=== PATIENT | male | born 1960 | race Caucasian/White ===

== ENCOUNTER 2017-07-18 20:53 | Inpatient (IN) | payer BC ==
[2017-07-18] MEDS ORDERED: NS 0.9% 1000 ML*IV.FLUID IV ONE (21:08)
[2017-07-18] MEDS ORDERED: Acetaminophen TAB* 325 MG PO ONE (21:10)
--- NOTE | 2017-07-18 21:21 | ED ---
Progress - Progress Note Progress Note: Pt with hx endocarditis x 3. Hx Hypertrophic cardiomyopathy, s/p septal myomectomy in 07/2010, s/p radiofrequency ablations at the [facility]. Pt had IV Vanco 1gm on Jun 03 per his civil engineering designer prior to a dental procedure. Pt presents tonight after calling Dr. Rahul Ortiz, forest and conservation worker for Dr. Sullivan (pt's civil engineering designer) because he had fever 102 at home with chills and rigors. Pt took ibuprofen 600mg po at 8:00pm. Pt denies chest pain or shortness of breath. Will initiate blood work with sepsis order set and fluids, draw blood cultures. Will give acetaminophen 650mg po. Will hold ordering antibiotics until possible source is identified. Valente Douglas MD 21:20 Course/Dx - Diagnoses Provider Diagnoses: Fever
[2017-07-18 21:32] LABS: Hematocrit 48 % (42-52); Hemoglobin 16.7 g/dl (14.0-18.0); Mean Corpuscular HGB Conc 35 g/dl (31-36); Mean Corpuscular Hemoglobin 31 pg (27-31); Mean Corpuscular Volume 89 fL (80-94); Mean Platelet Volume 7 um3 (7.4-10.4); Red Blood Count 5.33 10^6/ul (4.0-5.4); Red Cell Distribution Width 14 % (10.5-15); White Blood Count 11.9 10^3/ul (3.5-10.8)
[2017-07-18 21:49] LABS: Albumin 4.5 g/dL (3.2-5.2); BUN/Creatinine Ratio 27.9 (8-20); C Reactive Protein 2.66 mg/L (< 5.00); Calcium 9.5 mg/dL (8.6-10.3); EGFR African American 95.4 (>60); EGFR Non-African American 74.1 (>60); Globulin 2.7 g/dL (2-4); Potassium 4.1 mmol/L (3.5-5.0); Total Protein 7.2 g/dL (6.4-8.9)
[2017-07-18 21:55] LABS: Troponin I 0.04 ng/mL (<0.04)
--- NOTE | 2017-07-18 22:03 | RAD ---
HISTORY: Fever, history of endocarditis COMPARISONS: November 04, 2015 VIEWS: 2: frontal portable view of the chest at 9:55 PM FINDINGS: LINES AND TUBES: None. CARDIOMEDIASTINAL SILHOUETTE: The cardiomediastinal silhouette is normal for portable technique. PLEURA: The costophrenic angles are sharp. No pleural abnormalities are noted. LUNG PARENCHYMA: The lungs are clear. ABDOMEN: The upper abdomen is clear. There is no subphrenic gas. BONES AND SOFT TISSUES: The patient is status post median sternotomy. IMPRESSION: NO ACTIVE CARDIOPULMONARY DISEASE.
[2017-07-18] MEDS ORDERED: Vancomycin(*) 1,500 MG in NS 0.9% 250 ML* 250 ML IVPB ONE (22:07)
[2017-07-18 22:32] LABS: Erythrocyte Sed Rate 0 mm/Hr (0-20)
[2017-07-18] MEDS ORDERED: Cefepime 1 GM in Dextrose(*) 1 GM/50 ML BAG IV ONE (23:00)
--- NOTE | 2017-07-18 23:03 | ED ---
Huang Solis Tiffany, scribed for [employer] on 07/18/17 at 2132 . Complex/Multi-Sys Presentation - HPI Summary HPI Summary: This patient is a 56 year old M presenting to [facility] with a chief complaint of fever since two hours ago. Symptoms aggravated by nothing. Symptoms alleviated by nothing. Patient reports chills and nausea. Patient denies shortness of breath, chest pain, abdominal pain, and sore throat. Per ED progress note 07/18/17 at 21:20, pt with hx endocarditis x 3. Hx Hypertrophic cardiomyopathy, s/p septal myomectomy in 07/2010, s/p radiofrequency ablations at the [facility]. Pt had IV Vanco 1gm on Nov per his tool grinder operator prior to a dental procedure. Pt presents tonight after calling Dr. Rahul Ortiz, special forces communications sergeant for Dr. Sullivan (pt's tool grinder operator) because he had fever 102 at home with chills and rigors. Pt took ibuprofen 600mg po at 8: 00pm. - History Of Current Complaint Chief Complaint: EDFever Time Seen by Provider: 07/18/17 21:15 Hx Obtained From: Patient Onset/Duration: Lasting Hours - 2 hours, Still Present Aggravating Factor(s): Nothing Alleviating Factor(s): Nothing Associated Signs And Symptoms: Positive: Other - chills and nausea; NEGATIVE: shortness of breath, chest pain, abdominal pain, and sore throat. - Allergies/Home Medications Allergies/Adverse Reactions: Allergies Allergy/AdvReac Type Severity Reaction Status Date / Time Penicillins [PCN] Allergy Unknown Hives Verified 06/03/17 09:58 PMH/Surg Hx/FS Hx/Imm Hx Previously Healthy: No Cardiovascular History: Reports: Other Cardiovascular Problems/Disorders - ENDOCARDITIS, HYPERTROPHIC CARDIOMYOPATHY Denies: Hx Pacemaker/ICD Respiratory History: Reports: Other Respiratory Problems/Disorders - SLEEP APNEA Psychiatric History: Denies: Hx Panic Disorder - Surgical History Surgery Procedure, Year, and Place: 2007 GALLBLADDER, MYOMECTOMY WITH A BIOPROTHETIC MITRAL VALVE REPLACEMENT BICOR, - Immunization History Immunizations Up to Date: Yes Infectious Disease History: Yes Infectious Disease History: Denies: Traveled Outside the [place] in Last 30 Days - Family History Known Family History: Positive: None Family History: R & n/C - Social History Alcohol Use: Occasionally Hx Substance Use: No Substance Use Type: Reports: None Hx Tobacco Use: No Smoking Status (MU): Never Smoked Tobacco Review of Systems Positive: Fever, Chills Negative: Sore Throat Negative: Chest Pain Negative: Shortness Of Breath Positive: Nausea. Negative: Abdominal Pain All Other Systems Reviewed And Are Negative: Yes Physical Exam - Summary Physical Exam Summary: Appearance: Well appearing, no pain distress Skin: warm, dry, reflects adequate perfusion Head/face: normal Eyes: EOMI, DONNA ENT: normal Neck: supple, non-tender Respiratory: CTA, breath sounds present Cardiovascular: RRR, pulses symmetrical Abdomen: non-tender, soft Bowel: present Musculoskeletal: normal, strength/ROM intact Neuro: normal, sensory motor intact, A&Ox3 Triage Information Reviewed: Yes Vital Signs On Initial Exam: Initial Vitals Temp Pulse Resp BP Pulse Ox 100.1 F 75 14 146/70 97 07/18/17 20:54 07/18/17 20:54 07/18/17 20:54 07/18/17 20:54 07/18/17 20:54 Vital Signs Reviewed: Yes - Mitch Coma Scale Coma Scale Total: 15 Diagnostics - Vital Signs Vital Signs Temp Pulse Resp BP Pulse Ox 07/18/17 20:54 100.1 F 75 14 146/70 97 - Laboratory Lab Results: Lab Results 07/18/17 07/18/17 07/18/17 Range/Units 21:13 21:13 21:13 WBC (3.5-10.8) 10^3/ul RBC (4.0-5.4) 10^6/ul Hgb (14.0-18.0) g/dl Hct (42-52) % MCV (80-94) fL MCH (27-31) pg MCHC (31-36) g/dl RDW (10.5-15) % Plt Count (150-450) 10^3/ul MPV (7.4-10.4) um3 Neut % (Auto) (38-83) % Lymph % (Auto) (25-47) % [place] % (Auto) (1-9) % Eos % (Auto) (0-6) % Baso % (Auto) (0-2) % Absolute Neuts (auto) (1.5-7.7) 10^3/ul Absolute Lymphs (auto) (1.0-4.8) 10^3/ul Absolute Monos (auto) (0-0.8) 10^3/ul Absolute Eos (auto) (0-0.6) 10^3/ul Absolute Basos (auto) (0-0.2) 10^3/ul Absolute Nucleated RBC 10^3/ul Nucleated RBC % ESR (0-20) mm/Hr INR (Anticoag Therapy) 1.84 H (0.77-1.02) APTT 37.7 H (26.0-36.3) seconds Fibrinogen 212 (110.8-404.3) mg/dL Sodium 135 (133-145) mmol/L Potassium 4.1 (3.5-5.0) mmol/L Chloride 105 (101-111) mmol/L Carbon Dioxide 22 (22-32) mmol/L Anion Gap 8 (2-11) mmol/L BUN 29 H (6-24) mg/dL Creatinine 1.04 (0.67-1.17) mg/dL Est GFR ( Amer) 95.4 (>60) Est GFR (Non-Af Amer) 74.1 (>60) BUN/Creatinine Ratio 27.9 H (8-20) Glucose 106 H (70-100) mg/dL Lactic Acid (0.5-2.0) mmol/L Calcium 9.5 (8.6-10.3) mg/dL Total Bilirubin 1.00 (0.2-1.0) mg/dL AST 14 (13-39) U/L ALT 32 (7-52) U/L Alkaline Phosphatase 59 (34-104) U/L Total Creatine Kinase 122 (10-223) U/L Troponin I 0.04 H* (<0.04) ng/mL C-Reactive Protein 2.66 (< 5.00) mg/L B-Natriuretic Peptide 118 H ( - 100) pg/mL Total Protein 7.2 (6.4-8.9) g/dL Albumin 4.5 (3.2-5.2) g/dL Globulin 2.7 (2-4) g/dL Albumin/Globulin Ratio 1.7 (1-3) Influenza A (Rapid) (Negative) Influenza B (Rapid) (Negative) 07/18/17 07/18/17 07/18/17 Range/Units 21:13 21:13 21:53 WBC 11.9 H (3.5-10.8) 10^3/ul RBC 5.33 (4.0-5.4) 10^6/ul Hgb 16.7 (14.0-18.0) g/dl Hct 48 (42-52) % MCV 89 (80-94) fL MCH 31 (27-31) pg MCHC 35 (31-36) g/dl RDW 14 (10.5-15) % Plt Count 160 (150-450) 10^3/ul MPV 7 L (7.4-10.4) um3 Neut % (Auto) 87.6 H (38-83) % Lymph % (Auto) 5.1 L (25-47) % [place] % (Auto) 5.9 (1-9) % Eos % (Auto) 1.1 (0-6) % Baso % (Auto) 0.3 (0-2) % Absolute Neuts (auto) 10.5 H (1.5-7.7) 10^3/ul Absolute Lymphs (auto) 0.6 L (1.0-4.8) 10^3/ul Absolute Monos (auto) 0.7 (0-0.8) 10^3/ul Absolute Eos (auto) 0.1 (0-0.6) 10^3/ul Absolute Basos (auto) 0 (0-0.2) 10^3/ul Absolute Nucleated RBC 0 10^3/ul Nucleated RBC % 0 ESR 0 (0-20) mm/Hr INR (Anticoag Therapy) (0.77-1.02) APTT (26.0-36.3) seconds Fibrinogen (110.8-404.3) mg/dL Sodium (133-145) mmol/L Potassium (3.5-5.0) mmol/L Chloride (101-111) mmol/L Carbon Dioxide (22-32) mmol/L Anion Gap (2-11) mmol/L BUN (6-24) mg/dL Creatinine (0.67-1.17) mg/dL Est GFR ( Amer) (>60) Est GFR (Non-Af Amer) (>60) BUN/Creatinine Ratio (8-20) Glucose (70-100) mg/dL Lactic Acid 1.9 (0.5-2.0) mmol/L Calcium (8.6-10.3) mg/dL Total Bilirubin (0.2-1.0) mg/dL AST (13-39) U/L ALT (7-52) U/L Alkaline Phosphatase (34-104) U/L Total Creatine Kinase (10-223) U/L Troponin I (<0.04) ng/mL C-Reactive Protein (< 5.00) mg/L B-Natriuretic Peptide ( - 100) pg/mL Total Protein (6.4-8.9) g/dL Albumin (3.2-5.2) g/dL Globulin (2-4) g/dL Albumin/Globulin Ratio (1-3) Influenza A (Rapid) Negative (Negative) Influenza B (Rapid) Negative (Negative) Result Diagrams: 07/18/17 21:13 07/18/17 21:13 Lab Statement: Any lab studies that have been ordered have been reviewed, and results considered in the medical decision making process. - Radiology CXR Radiology Interpretation Completed By: Radiologist - NO ACTIVE CARDIOPULMONARY DISEASE. ED physician has reviewed this radiology report. - EKG 21:26 Cardiac Rate: NL EKG Rhythm: Sinus Rhythm - 70 BPM EKG Interpretation: Left bundle branch block Complex Multi-Symp Course/Dx - Diagnoses Differential Diagnoses/HQI/PQRI: Aspiration, Sepsis, Urinary Tract Infection, Other - endocarditis Provider Diagnoses: Fever, Sepsis, Endocarditis - Physician Notifications Discussed Care Of Patient With: Gibran Quiroga Time Discussed With Above Provider: 22:03 Instructed by Provider To: Other - Dr. Quiroga (hospitalist) agreed to admit the patient. - Critical Care Time Critical Care Time: 30-74 min Discharge - Discharge Plan Condition: Fair Disposition: ADMITTED TO [facility] Patient Education Materials: Fever in Adults (ED) Referrals: Kodi Carlton MD [Primary Care Provider] - The documentation as recorded by the Huang olea Tiffany accurately reflects the service I personally performed and the decisions made by Saul kim Emmanuel.
[2017-07-18] MEDS ORDERED: CMCS: Melatonin (NF) 3 MG TAB PO PRN (23:41)
[2017-07-18] MEDS ORDERED: Ondansetron INJ* 2 MG/ML VIAL IV PRN (23:42)
[2017-07-18] MEDS ORDERED: Vancomycin per Pharmacy* NOTE FOLLOW UP SCH (23:45)
[2017-07-19] MEDS ORDERED: Vancomycin per Pharmacy* NOTE FOLLOW UP PRN
[2017-07-19 01:56] LABS: Urine Bacteria Absent (Absent); Urine Bilirubin Negative (Negative); Urine Glucose Negative (Negative); Urine Nitrite Negative (Negative)
[2017-07-19] MEDS: NS 0.9% 1000 ML* 1,000 ML IV SCH (03:27)
[2017-07-19] MEDS: Acetaminophen TAB* 325 MG PO PRN ×2 (03:47→09:22)
[2017-07-19] MEDS: Omeprazole CAP* 20 MG PO SCH (05:48)
--- NOTE | 2017-07-19 05:49 | HP ---
H&P (Free Text) History and Physical: PCP: Segun Carlton MD Cardiology: Rip Sullivan MD Date/Time: 07/18/2017 2330 CC: fever HPI: Mr Rhodes is a 56YO male HX endocarditis x3, porcine MVR, myomectomy for hypertrophic cardiomyopathy, & paroxysmal AFIB presents reporting being in his usual status of health until 1900 tonight when he developed sudden onset malaise , F/C, rigors, nausea, & myalgias. He denies exacerbating and alleviating factors. There has been no chest pain, cough, congestion, earache, sore throat, abdominal pain, change in bowel/bladder, or rash. He states this feels like his previous episodes of endocarditis. He called cardiology conche loader and unloader who advised him to present for evaluation. PMedHx pAFIB HLD, mixed endocarditis x3 porcine MVR hypertrophic cardiomyopathy s/p myomectomy depression Ambulatory Orders Aspirin [Aspirin EC] 81 mg PO DAILY 07/01/12 Bupropion HCl [Bupropion HCl Sr] 200 mg PO BID 07/01/12 Fenofibrate 1 tab PO DAILY 07/01/12 Multiple Vitamin [Multivitamins] 1 tab PO DAILY 07/01/12 Atorvastatin Calcium 80 mg PO QPM 09/25/13 Coenzyme Q10 (Ubidecarenone) [Co Q-10] 200 mg PO DAILY 09/25/13 Rivaroxaban [Xarelto] 20 mg PO QPM 09/26/13 [id number] Ethyl Esters [Lovaza 1 gm] 2 cap PO BID 10/30/13 Metoprolol Succinate [Metoprolol Succinate ER] 25 mg PO BID 07/18/17 Allergies Penicillins [PCN] Allergy (Unknown, Verified 06/03/17 09:58) Hives PSurgHx porcine MVR myomectomy radio frequency ablations x2 cholecystectomy SocHx: no tobacco, 1-2 alcoholic drinks weekly, no recreational drugs; lives with his ; commercial appraiser; full code status FamHx: negative for early onset CAD/CVA and hypertrophic cardiomyopathy ROS: as above, otherwise reviewed and all were negative vitals: Vital Signs Temp 36.5 C 07/19/17 02:48 Pulse 91 07/19/17 02:48 Resp 23 07/19/17 02:48 BP 141/55 07/19/17 02:48 Pulse Ox 96 07/19/17 02:48 Intake & Output 07/18/17 07/18/17 07/19/17 11:59 23:59 11:59 Intake Total 2166 1173 Output Total 650 Balance 2166 523 Weight 105.233 kg 105.233 kg Intake: IV Fluids 2166 1173 NS (0.9%) 1173 Oral 0 Output: Urine 650 Other: Estimated Void Medium # Voids 1 Constitutional: NAD, normally developed, obese white male HEENM: atraumatic; sclera/conjunctiva: anicteric/clear; hearing: clinically intact; oropharynx: clear, mucosa moist Neck: soft tissue: no nuchal rigidity; thyroid: normal Pulmonary: clear to auscultation bilaterally, good aeration, no accessory muscle use CV: RR/RR, normal S1S2, no carotid bruit, no jugular venous distention, 2+ B DP/ PT, no edema Abdominal: soft, non-distended, non-tender, no rebound/guarding/rigidity, normoactive bowel sounds, no hepatosplenomegaly or masses, no costovertebral angle tenderness Musculoskeletal: general: grossly intact, no palpable tenderness Integumental: B medial thighs w/ excoriated erythematous dry plaques w/o warmth/ tenderness/induration; otherwise normal appearance and texture of exposed skin Psychiatric orientation: AA&O to PPS affect: calm mood: cooperative eye contact: good content: reliable responses: timely insight: good Testing: Lab Results 07/18/17 07/18/17 07/18/17 Range/Units 21:13 21:13 21:13 WBC (3.5-10.8) 10^3/ul RBC (4.0-5.4) 10^6/ul Hgb (14.0-18.0) g/dl Hct (42-52) % MCV (80-94) fL MCH (27-31) pg MCHC (31-36) g/dl RDW (10.5-15) % Plt Count (150-450) 10^3/ul MPV (7.4-10.4) um3 Neut % (Auto) (38-83) % Lymph % (Auto) (25-47) % [place] % (Auto) (1-9) % Eos % (Auto) (0-6) % Baso % (Auto) (0-2) % Absolute Neuts (auto) (1.5-7.7) 10^3/ul Absolute Lymphs (auto) (1.0-4.8) 10^3/ul Absolute Monos (auto) (0-0.8) 10^3/ul Absolute Eos (auto) (0-0.6) 10^3/ul Absolute Basos (auto) (0-0.2) 10^3/ul Absolute Nucleated RBC 10^3/ul Nucleated RBC % ESR (0-20) mm/Hr INR (Anticoag Therapy) 1.84 H (0.77-1.02) APTT 37.7 H (26.0-36.3) seconds Fibrinogen 212 (110.8-404.3) mg/dL Sodium 135 (133-145) mmol/L Potassium 4.1 (3.5-5.0) mmol/L Chloride 105 (101-111) mmol/L Carbon Dioxide 22 (22-32) mmol/L Anion Gap 8 (2-11) mmol/L BUN 29 H (6-24) mg/dL Creatinine 1.04 (0.67-1.17) mg/dL Est GFR ( Amer) 95.4 (>60) Est GFR (Non-Af Amer) 74.1 (>60) BUN/Creatinine Ratio 27.9 H (8-20) Glucose 106 H (70-100) mg/dL Lactic Acid (0.5-2.0) mmol/L Calcium 9.5 (8.6-10.3) mg/dL Total Bilirubin 1.00 (0.2-1.0) mg/dL AST 14 (13-39) U/L ALT 32 (7-52) U/L Alkaline Phosphatase 59 (34-104) U/L Total Creatine Kinase 122 (10-223) U/L Troponin I 0.04 H* (<0.04) ng/mL C-Reactive Protein 2.66 (< 5.00) mg/L B-Natriuretic Peptide 118 H ( - 100) pg/mL Total Protein 7.2 (6.4-8.9) g/dL Albumin 4.5 (3.2-5.2) g/dL Globulin 2.7 (2-4) g/dL Albumin/Globulin Ratio 1.7 (1-3) Urine Color Urine Appearance Urine pH (5-9) Ur Specific [place] (1.010-1.030) Urine Protein (Negative) Urine Ketones (Negative) Urine Blood (Negative) Urine Nitrate (Negative) Urine Bilirubin (Negative) Urine Urobilinogen (Negative) Ur Leukocyte Esterase (Negative) Urine WBC (Auto) (Absent) Urine RBC (Auto) (Absent) Urine Bacteria (Absent) Urine Glucose (Negative) Influenza A (Rapid) (Negative) Influenza B (Rapid) (Negative) 07/18/17 07/18/17 07/18/17 Range/Units 21:13 21:13 21:53 WBC 11.9 H (3.5-10.8) 10^3/ul RBC 5.33 (4.0-5.4) 10^6/ul Hgb 16.7 (14.0-18.0) g/dl Hct 48 (42-52) % MCV 89 (80-94) fL MCH 31 (27-31) pg MCHC 35 (31-36) g/dl RDW 14 (10.5-15) % Plt Count 160 (150-450) 10^3/ul MPV 7 L (7.4-10.4) um3 Neut % (Auto) 87.6 H (38-83) % Lymph % (Auto) 5.1 L (25-47) % [place] % (Auto) 5.9 (1-9) % Eos % (Auto) 1.1 (0-6) % Baso % (Auto) 0.3 (0-2) % Absolute Neuts (auto) 10.5 H (1.5-7.7) 10^3/ul Absolute Lymphs (auto) 0.6 L (1.0-4.8) 10^3/ul Absolute Monos (auto) 0.7 (0-0.8) 10^3/ul Absolute Eos (auto) 0.1 (0-0.6) 10^3/ul Absolute Basos (auto) 0 (0-0.2) 10^3/ul Absolute Nucleated RBC 0 10^3/ul Nucleated RBC % 0 ESR 0 (0-20) mm/Hr INR (Anticoag Therapy) (0.77-1.02) APTT (26.0-36.3) seconds Fibrinogen (110.8-404.3) mg/dL Sodium (133-145) mmol/L Potassium (3.5-5.0) mmol/L Chloride (101-111) mmol/L Carbon Dioxide (22-32) mmol/L Anion Gap (2-11) mmol/L BUN (6-24) mg/dL Creatinine (0.67-1.17) mg/dL Est GFR ( Amer) (>60) Est GFR (Non-Af Amer) (>60) BUN/Creatinine Ratio (8-20) Glucose (70-100) mg/dL Lactic Acid 1.9 (0.5-2.0) mmol/L Calcium (8.6-10.3) mg/dL Total Bilirubin (0.2-1.0) mg/dL AST (13-39) U/L ALT (7-52) U/L Alkaline Phosphatase (34-104) U/L Total Creatine Kinase (10-223) U/L Troponin I (<0.04) ng/mL C-Reactive Protein (< 5.00) mg/L B-Natriuretic Peptide ( - 100) pg/mL Total Protein (6.4-8.9) g/dL Albumin (3.2-5.2) g/dL Globulin (2-4) g/dL Albumin/Globulin Ratio (1-3) Urine Color Urine Appearance Urine pH (5-9) Ur Specific [place] (1.010-1.030) Urine Protein (Negative) Urine Ketones (Negative) Urine Blood (Negative) Urine Nitrate (Negative) Urine Bilirubin (Negative) Urine Urobilinogen (Negative) Ur Leukocyte Esterase (Negative) Urine WBC (Auto) (Absent) Urine RBC (Auto) (Absent) Urine Bacteria (Absent) Urine Glucose (Negative) Influenza A (Rapid) Negative (Negative) Influenza B (Rapid) Negative (Negative) 07/19/17 07/19/17 07/19/17 Range/Units 01:24 01:24 01:30 WBC (3.5-10.8) 10^3/ul RBC (4.0-5.4) 10^6/ul Hgb (14.0-18.0) g/dl Hct (42-52) % MCV (80-94) fL MCH (27-31) pg MCHC (31-36) g/dl RDW (10.5-15) % Plt Count (150-450) 10^3/ul MPV (7.4-10.4) um3 Neut % (Auto) (38-83) % Lymph % (Auto) (25-47) % [place] % (Auto) (1-9) % Eos % (Auto) (0-6) % Baso % (Auto) (0-2) % Absolute Neuts (auto) (1.5-7.7) 10^3/ul Absolute Lymphs (auto) (1.0-4.8) 10^3/ul Absolute Monos (auto) (0-0.8) 10^3/ul Absolute Eos (auto) (0-0.6) 10^3/ul Absolute Basos (auto) (0-0.2) 10^3/ul Absolute Nucleated RBC 10^3/ul Nucleated RBC % ESR (0-20) mm/Hr INR (Anticoag Therapy) (0.77-1.02) APTT (26.0-36.3) seconds Fibrinogen (110.8-404.3) mg/dL Sodium (133-145) mmol/L Potassium (3.5-5.0) mmol/L Chloride (101-111) mmol/L Carbon Dioxide (22-32) mmol/L Anion Gap (2-11) mmol/L BUN (6-24) mg/dL Creatinine (0.67-1.17) mg/dL Est GFR ( Amer) (>60) Est GFR (Non-Af Amer) (>60) BUN/Creatinine Ratio (8-20) Glucose (70-100) mg/dL Lactic Acid 1.5 (0.5-2.0) mmol/L Calcium (8.6-10.3) mg/dL Total Bilirubin (0.2-1.0) mg/dL AST (13-39) U/L ALT (7-52) U/L Alkaline Phosphatase (34-104) U/L Total Creatine Kinase (10-223) U/L Troponin I 0.04 H* (<0.04) ng/mL C-Reactive Protein (< 5.00) mg/L B-Natriuretic Peptide ( - 100) pg/mL Total Protein (6.4-8.9) g/dL Albumin (3.2-5.2) g/dL Globulin (2-4) g/dL Albumin/Globulin Ratio (1-3) Urine Color Yellow Urine Appearance Cloudy Urine pH 5.0 (5-9) Ur Specific [place] 1.028 (1.010-1.030) Urine Protein Negative (Negative) Urine Ketones Negative (Negative) Urine Blood 1+ H (Negative) Urine Nitrate Negative (Negative) Urine Bilirubin Negative (Negative) Urine Urobilinogen Negative (Negative) Ur Leukocyte Esterase Negative (Negative) Urine WBC (Auto) Trace(0-5/hpf) (Absent) Urine RBC (Auto) 2+(6-10/hpf) H (Absent) Urine Bacteria Absent (Absent) Urine Glucose Negative (Negative) Influenza A (Rapid) (Negative) Influenza B (Rapid) (Negative) ECG, personally reviewed: 1st degree AV LBBB rate 70 CXR, personally reviewed: IMPRESSION: NO ACTIVE CARDIOPULMONARY DISEASE. Impression: 56M HX endocarditis x3, porcine MVR, myomectomy for hypertrophic cardiomyopathy, & paroxysmal AFIB presents with sudden onset malaise, F/C, rigors, nausea, & myalgias of uncertain etiology DIAGNOSIS & PLAN Primary presumed infectious burden of uncertain source HX endocarditis x3, porcine MVR, & hypertrophic cardiomyopathy s/p myomectomy : blood CX : IV vancomycin & cefepime empirically for endocarditis : ECHO in AM : supportive care Secondary pAFIB : continue metoprolol & rivaroxaban HLD, mixed : continue atorvastatin & fenofibrate depression : continue bupropion Admission Rational: inpatient for IV ABX for presumed endocarditis, awaiting blood CX, do not anticipate discharge w/i 48h DVTp: continue rivaroxaban Code Status: full HCP:
[2017-07-19 07:09] LABS: Hematocrit 42 % (42-52); Hemoglobin 14.9 g/dl (14.0-18.0); Mean Corpuscular HGB Conc 36 g/dl (31-36); Mean Corpuscular Hemoglobin 32 pg (27-31); Mean Corpuscular Volume 89 fL (80-94); Mean Platelet Volume 7 um3 (7.4-10.4); Red Blood Count 4.73 10^6/ul (4.0-5.4); Red Cell Distribution Width 14 % (10.5-15); White Blood Count 12.7 10^3/ul (3.5-10.8)
[2017-07-19 07:20] LABS: BUN/Creatinine Ratio 22.2 (8-20); Calcium 8.5 mg/dL (8.6-10.3); EGFR African American 91.3 (>60); Potassium 3.8 mmol/L (3.5-5.0)
[2017-07-19 07:27] LABS: Troponin I 0.05 ng/mL (<0.04)
[2017-07-19] MEDS ORDERED: Acetaminophen TAB* 325 MG PO ONE (09:13)
[2017-07-19] MEDS: Vancomycin(*) 1,250 MG in NS 0.9% 250 ML* 250 ML IVPB SCH ×2 (09:24→17:31)
[2017-07-19] MEDS: Metoprolol Succinate XL TAB* 25 MG PO SCH ×2 (09:27→23:37)
[2017-07-19] MEDS: Docusate CAP* 100 MG PO SCH ×2 (09:27→23:37)
[2017-07-19] MEDS: buPROPion SR TAB.SR* 200 MG PO SCH ×2 (09:27→23:37)
[2017-07-19] MEDS: Aspirin EC Low Dose* 81 MG TAB.EC PO SCH (09:27)
[2017-07-19] MEDS: Triamcinolone 0.5% OINT * 15 GM TUBE TOPICAL SCH ×3 (09:36→23:38)
[2017-07-19] MEDS: FENOFIBRATE PO SCH (09:36)
--- NOTE | 2017-07-19 10:06 | ECHO ---
Patient: SONIA RODRÍGUEZ [facility] Rec#: [id number] : 1960 Date: 07/19/2017 Age: 56y Height: 188 cm / 74.0 in Weight: 105.2 kg / 231.9 lbs Sex: M BSA: 2.31 Room#: [facility] Admit Date#: 07/18/2017 Type: Inpatient Referring: Gibran Quiroga MD Reading: Fernie Ascencio MD Cementer Machine Joiner: Candie Maya RN RDCS CC: Kodi Carlton MD Transthoracic Echocardiogram Indication: Fever, porcine MVR, previous endocarditis BP: 141/55 HR: 71 Rhythm: NSR Findings History: Endocarditis x 3, porcine MVR, S/P myectomy for hypertrophic cardiomyopathy, paroxysmal A. fib, HLD Technical Comments: The study quality is fair. The study is technically limited due to patient body habitus. Completed at 0940. Left Ventricle: The left ventricular chamber size is normal. Severe concentric left ventricular hypertrophy is observed. There is evidence of a hypertrophic cardiomyopathy. Global left ventricular wall motion and contractility are within normal limits. There is normal left ventricular systolic function. The estimated ejection fraction is 60-65%. Ventricular septal wall motion has a post-operative appearance. There is a left ventricular septal wall motion abnormality observed, possibly due to the presence of a left bundle branch block. There is no consistent Doppler evidence of clinically significant diastolic dysfunction. Left Atrium: The left atrium is severely dilated. Right Ventricle: The right ventricle wall thickness is mildly increased. The right ventricular cavity size is normal. The right ventricular global systolic function is normal. Right Atrium: The right atrial cavity size is severely dilated. Aortic Valve: The aortic valve is trileaflet. The aortic valve leaflets are mildly thickened. There is no evidence of aortic regurgitation. There is no evidence of aortic stenosis. There is no aortic vegetation present. Mitral Valve: There is a trace of mitral regurgitation. A porcine bioprosthetic mitral valve is present. Tricuspid Valve: The tricuspid valve leaflets are normal. There is trace to mild tricuspid regurgitation. Unable to estimate the right ventricular systolic pressure. There is no tricuspid stenosis. No vegetation is observed on the tricuspid valve. Pulmonic Valve: The pulmonic valve appears normal in structure and function. There is mild pulmonic regurgitation. There is no pulmonic stenosis. No vegetation is observed on the pulmonic valve. Pericardium: There is no significant pericardial effusion. A pericardial fat pad is visualized. Aorta: There is mild dilatation of the ascending aorta. There is no dilatation of the aortic arch. There is no dilation of the aortic root. Pulmonary Artery: The main pulmonary artery is not well visualized. Venous: The inferior vena cava appears normal in size. There is an approximate 50% respiratory change in the inferior vena cava dimension. Summary: There are no significant changes when compared to the previous study done on 03/15/17 at [facility] Conclusions Severe concentric left ventricular hypertrophy is observed. Global left ventricular wall motion and contractility are within normal limits. There is normal left ventricular systolic function. The estimated ejection fraction is 60-65%. Ventricular septal wall motion has a post-operative appearance. The left atrium is severely dilated. The right ventricular cavity size is normal. The aortic valve leaflets are mildly thickened. There is no evidence of aortic regurgitation. There is no aortic vegetation present. A porcine bioprosthetic mitral valve is present. Appears normal in structure There is a trace of mitral regurgitation. There is trace to mild tricuspid regurgitation. Unable to estimate the right ventricular systolic pressure. No vegetation is observed on the tricuspid valve. No vegetation is observed on the pulmonic valve. There is no significant pericardial effusion. Measurements Name Value Normal Range RVDdMajor (2D) 4.3 cm (2.2 - 4.4) RVAW (2D) 0.7 cm (0.2 - 0.5) RAd ISD 4CH 6.9 cm (3.4 - 4.9) RA (A4C)W 5.1 cm (2.9 - 4.6) IVSd (2D) 2 cm (0.6 - 1) LVPWd (2D) 2 cm (0.6 - 1) LVIDd (2D) 4.4 cm (3.6 - 5.4) LVIDs (2D) 2.7 cm - LV FS (2D) 39 % (25 - 45) Aortic Annulus 2.4 cm (1.4 - 2.6) Ao root diameter (2D) 3.3 cm (2.1 - 3.5) Ascending Ao 3.6 cm (2.1 - 3.4) Aortic arch 2.5 cm (1.8 - 3.4) LA dimension (AP) 2D 4.9 cm (2.3 - 3.8) LAd ISD 4CH 6.7 cm (2.9 - 5.3) LA ISD 4CH W 6.4 cm (2.5 - 4.5) Name Value Normal Range LA ESV SP 4CH (A/L) 109 ml - LA ESV SP 2CH (A/L) 139 ml - LA ESV BP (A/L) 128 ml - LA ESV BP (A/L) index 55.3 ml/m2 - LA ESV SP 4CH (MOD) 101 ml - LA ESV SP 2CH (MOD) 136 ml - Name Value Normal Range MV E-wave Vmax 1.7 m/sec - MV deceleration time 325 msec - MV A-wave Vmax 1.3 m/sec - MV E:A ratio 1.3 ratio - LV septal e' Vmax 0.05 m/sec - LV lateral e' Vmax 0.06 m/sec - LV E:e' septal ratio 34 ratio - LV E:e' lateral ratio 28.3 ratio - Name Value Normal Range AV Vmax 1.5 m/sec - AV VTI 28.6 cm - AV peak gradient 7.8 mmHg - AV mean gradient 4.8 mmHg - LVOT diameter 2.3 cm - LVOT Vmax 1.4 m/sec - LVOT VTI 27.1 cm - LVOT peak gradient 7.6 mmHg - LVOT mean gradient 3.9 mmHg - SV LVOT 111 ml - PANFILO Vmax 1.2 m/sec - Name Value Normal Range MV Vmax 1.9 m/sec - MV VTI 73 cm - MV peak gradient 15 mmHg - MV mean gradient 6.3 mmHg - MV PHT 140 msec - MVA (PHT) 1.6 cm2 - MVA (continuity VTI) 1.5 cm2 - Name Value Normal Range IVC diameter 2 cm - Name Value Normal Range PV Vmax 1.1 m/sec -
[2017-07-19] MEDS ORDERED: Cefepime(*) 1 GM in D5W 50 ML BAG* 50 ML IVPB SCH (11:00)
[2017-07-19] MEDS ORDERED: Naloxone* 0.4 MG/ML 1 ML VIAL ONE (14:45)
[2017-07-19] MEDS ORDERED: fentaNYL* 50 MCG/ML 2 ML VIAL (100 MCG VIAL) ONE (14:45)
[2017-07-19] MEDS ORDERED: Midazolam* 1 MG/ML 10 ML VIAL (10 MG) ONE (14:45)
[2017-07-19] MEDS ORDERED: Flumazenil* 0.1 MG/ML 5 ML MDV ONE (14:46)
[2017-07-19] MEDS ORDERED: Lidocaine 2% VISCOUS* 15 ML UDC ONE (14:46)
--- NOTE | 2017-07-19 15:29 | CONS ---
CC: Patricio Sullivan MD; Kodi Carlton MD * CARDIOLOGY CONSULTATION: DATE OF CONSULTATION: 07/19/17 INDICATION FOR CONSULTATION: Fevers, chills, mitral valve replacement. HISTORY OF PRESENT ILLNESS: The patient is a 56-year-old gentleman with a history of hypertrophic obstructive cardiomyopathy, history of mitral valve replacement in 2009, who called the woodwind instruments inspector on-call stating that he was having fevers and chills and was sent to the emergency room. The patient states that he felt well yesterday, but started having fevers and chills in the evening and then immediately came to the emergency room. The patient states that his symptoms are similar to when he had endocarditis back in 2010, which required mitral valve replacement. In speaking with the patient now, he is feeling much more comfortable. He was having shaking chills and fevers. Earlier this morning, he got some ibuprofen and that improved. The patient did have an echocardiogram this morning, which showed normal LV size and systolic function. His mitral valve replacement prosthesis was functioning normally. There was no mitral regurgitation. There was no obvious evidence of vegetation. His aortic valve was mildly thickened, but without evidence of vegetation. His other valves looked normal. PAST MEDICAL HISTORY: Significant for: 1. Atrial fibrillation. 2. Mitral valve replacement. OUTPATIENT MEDICATIONS: 1. Atorvastatin 80 mg a day. 2. Toprol-XL 25 mg a day. 3. Xarelto 20 mg a day. 4. Fenofibrate 45 mg a day. 5. Coenzyme Q10, 200 mg a day. 6. Multivitamin a day. 7. Bupropion 200 mg b.i.d. ALLERGIES: PENICILLIN. FAMILY HISTORY: Noncontributory. 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 He denies tobacco or alcohol use. He exercises 4 times a week. REVIEW OF SYSTEMS: Positive for fevers and chills. Negative for changes in bowel or bladder habits. Negative for changes in weight. Other 12-point review is unremarkable. PHYSICAL EXAM: Height is 6 feet 2 inches, weight 232 pounds. Temperature currently is 97.7, when he arrived last night it was 101.1; blood pressure 120/ 63; respiratory rate is 19; oxygen saturation 96% on room air; heart rate is 68. Sclerae anicteric. Oropharynx is pink without erythema. Carotids are 2+ without bruits. JVD is normal. Thyroid is normal. Cardiac Exam: S1, S2 without any murmurs, rubs, or gallops. Lungs are clear to auscultation bilaterally. There is no dullness to percussion. Abdomen is soft, nontender, nondistended with normoactive bowel sounds. Extremities show no edema. He has 2 + pulses throughout. The patient is awake, alert, and oriented. He moves all 4 extremities equally. LABORATORY DATA/DIAGNOSTIC STUDIES: CBC shows a white count of 12.7, hemoglobin 14, hematocrit 42, platelet count 133,000. Chemistry is within normal limits. BUN 24, creatinine 1.08. AST and ALT are within normal limits. Troponin levels are minimally elevated at 0.04. BNP is 118. C-reactive protein is normal at 2.6. INR 1.8. EKG demonstrates normal sinus rhythm with a left bundle-branch block, which is unchanged from April 2017. IMPRESSION: This is a 56-year-old gentleman with a history of mitral valve replacement who called our office last night stating he was having fevers and chills, and he was instructed to go to the emergency room. On arrival, the patient was febrile, had a mild elevation in his white count. When I saw the patient earlier today, he was having active fevers and chills and rigors. When I saw him a couple of hours later, he was much more comfortable after having Motrin. His transthoracic echocardiogram shows no obvious abnormality. The patient will undergo a transesophageal echocardiogram later today. The patient is on appropriate antibiotics including vancomycin. The patient will get a ID consult. Further recommendations pending results of his transesophageal echocardiogram. [id number]/[facility] #: [id number] [facility]
--- NOTE | 2017-07-19 16:11 | PN ---
Subjective Date of Service: 07/19/17 Interval History: Mr. Rhodes reports that he feels feverish now with malaise. He denies chest pain, SOB, nausea, or abdominal pain. Mr. Rhodes reports that he was found to have hypertrophic cardiomyopathy in 1991. He followed closely with Dr. Sullivan over the years. He had three previous episodes of endocarditis in the past--an unclear episode prior to 2004 , one in 2004, and one in 2007. According to the EMR it appears that these were caused by MSSA as well. In 2007, he followed up in [facility] and ultimately required a porcine mitral valve replacement with septal myectomy in 2009. He has not had an episode of endocarditis since then. Objective Active Medications: Acetaminophen (Tylenol Tab*) 650 mg PO Q6H PRN Aspirin (Aspirin Ec Low Dose*) 81 mg PO DAILY [facility] Atorvastatin Calcium (Lipitor*) 80 mg PO QPM [facility] Bupropion HCl (Wellbutrin Sr Tab*) 200 mg PO BID [facility] Docusate Sodium (Colace Cap*) 200 mg PO BID [facility] Sodium Chloride (Ns 0.9% 1000 Ml*) 1,000 mls @ 100 mls/hr IV PER RATE [facility] Cefepime HCl 1 gm/ Dextrose 50 mls @ 100 mls/hr IVPB Q12H [facility] Vancomycin HCl 1,250 mg/ (Sodium Chloride) 250 mls @ 166.667 mls/hr IVPB Q8H [facility] Melatonin (Melatonin (Nf)) 3 mg PO BEDTIME PRN; Protocol Metoprolol Succinate (Toprol Xl Tab*) 25 mg PO BID [facility] Nf: Fenofibrate [ (Fenofibrate] 56mg) 1 tab PO DAILY [facility] Omeprazole (Prilosec Cap*) 20 mg PO DAILY@0600 [facility] Ondansetron HCl (Zofran Inj*) 4 mg IV Q6H PRN Pharmacy Consult (Vancomycin Per Pharmacy*) 1 note FOLLOW UP .VANC PER PHARMACY [facility] Pharmacy Consult (Vancomycin Per Pharmacy*) 1 note FOLLOW UP . PRN Pharmacy Profile Note (Vancomycin Trough Check) 1 note FOLLOW UP 0730 ONE Rivaroxaban (Xarelto (*)) 20 mg PO DAILY@1700 [facility] Triamcinolone Acetonide (Triamcinolone 0.5% Oint *) 1 applic TOPICAL TID [facility] Vital Signs: Temp Pulse Resp BP Pulse Ox 100.6 F 77 18 124/47 97 07/19/17 11:26 07/19/17 11:26 07/19/17 11:26 07/19/17 11:26 07/19/17 11:26 Oxygen Devices in Use Now: None Appearance: Patient lying in bed in NAD Eyes: No Scleral Icterus Ears/Nose/Mouth/Throat: NL Teeth, Lips, Gums, Mucous Membranes Moist Neck: Trachea Midline Respiratory: Symmetrical Chest Expansion and Respiratory Effort, Clear to Auscultation Cardiovascular: NL Sounds; No Murmurs; No JVD, No Edema Abdominal: NL Sounds; No Tenderness; No Distention Lymphatic: No Cervical Adenopathy Extremities: No Edema Skin: - - Excema to right medial thigh, chronic Neurological: Alert and Oriented x 3, NL Muscle Strength and Tone Nutrition: Taking PO's Result Diagrams: 07/19/17 06:50 07/19/17 06:50 Additional Lab and Data: . Assess/Plan/Problems-Billing Assessment: Mr. Rhodes is a 56 yo male with a PMH of endocarditis x 3 and mitral valve replacement who was admitted on 07/18/17 with fever, chills, and rigors now confirmed to have staph aureus bacteremia and suspected endocarditis. - Patient Problems (1) Endocarditis Comment: - Tmax 100.6 since admission, continue IVF while febrile. - RAPHAEL shows .4cm x .6cm possible vegetation to the mitral valve. - Staph aureus positive blood cultures x 2. - ID consult pending for AM, switched to ancef. (2) H/O mitral valve replacement Comment: - Valve functioning appropriately per RAPHAEL with Dr. Ascencio. (3) Hyperlipidemia Comment: - Continue atorvastatin, fenofibrate. (4) Afib Comment: - Continue xarelto. (5) Depression Comment: - Continue wellbutrin. (6) Hypertension Comment: - SBP 110-120. - Continue metoprolol. (7) DVT prophylaxis Comment: - Xarelto (8) Full code status Comment: Status and Disposition: Inpatient. Anticipate discharge to home when medically stable.
--- NOTE | 2017-07-19 17:26 | TEE ---
Patient: SONIA RODRÍGUEZ [facility] Rec#: [id number] : 1960 Date: 07/19/2017 Age: 56y Height: 188 cm / 74.0 in Weight: 105.2 kg / 231.9 lbs Sex: M BSA: 2.3 Room#: [facility] Admit Date#: 07/18/2017 Type: Inpatient Referring: Fernie Ascencio MD Performing: Fernie Ascencio MD Reading: Fernie Ascencio MD Emergency Management System Director: Candie Maya RN RDCS Nurse: Jaz Moura RN CC: Kodi Carlton MD Transesophageal Echocardiogram Indication: Fever, chills, MVR BP: 139/64 HR: 83 Rhythm: NSR Findings History: Endocarditis x 3, porcine MVR, S/P myectomy for hypertrophic cardiomyopathy, paroxysmal A. fib, HLD Technical Comments: The study quality is good. Left Ventricle: The left ventricular chamber size is normal. There is evidence of a hypertrophic cardiomyopathy. Global left ventricular wall motion and contractility are within normal limits. There is normal left ventricular systolic function. The estimated ejection fraction is 60-65%. Ventricular septal wall motion has a post-operative appearance. There is a left ventricular septal wall motion abnormality observed, possibly due to the presence of a left bundle branch block. Left Atrium: The left atrium is severely dilated. There is no thrombus visualized in the left atrial appendage. Right Ventricle: The right ventricular chamber size and systolic function are within normal limits. Right Atrium: The right atrium is moderately dilated. A patent foramen ovale is not demonstrated by color Doppler. A bubble study was performed on a previous study and is not repeated today. Aortic Valve: The aortic valve is trileaflet. The aortic valve leaflets are mildly thickened. There is no evidence of aortic regurgitation. There is no evidence of aortic stenosis. There is no aortic vegetation present. Mitral Valve: There is mild mitral regurgitation. The mitral regurgitant jet is centrally directed. A mass is visualized on the mitral valve which appears consistent with a vegetation.measuring 0.4 cm x 0.6 cm. A porcine bioprosthetic mitral valve is present. The bioprosthetic mitral valve appears to be functioning abnormally secondary to the presence of a vegetation. Tricuspid Valve: The tricuspid valve leaflets are normal. There is mild tricuspid regurgitation. There is no tricuspid stenosis. No vegetation is observed on the tricuspid valve. Pulmonic Valve: The pulmonic valve structure is not well visualized. Pericardium: There is no significant pericardial effusion. Aorta: There is no dilatation of the ascending aorta. There is mild dilatation of the aortic root. There is mild atherosclerotic plaque seen in the aorta. Pulmonary Artery: The main pulmonary artery is not well visualized. Venous: The bicaval view was obtained and appears normal. The pulmonary veins appear normal. 1 of 4 veins is visualized and interrogated with Doppler. RAPHAEL Procedures: All standard views were attempted within the limitations of patient tolerance and safety. History and physical as well as labs were reviewed. The patient was in a fasting state. Risks and benefits of the procedure, including alternatives, were discussed and written informed consent was obtained. The patient and/or their health care operations representative expressed understanding of the procedure, risks and benefits. Baseline and continuous monitoring of blood pressure, heart rate, pulse oximetry and heart rhythm was performed throughout the procedure. The appropriate time-out procedure was performed as per [facility] protocol. The patient was placed in the left lateral decubitus position. The patient's posterior pharynx was anesthetized with 20ml of 2% viscous lidocaine. The patient received IV Midazolam with a total dose of 4 mg. The patient received IV Fentanyl with a total dose of 50 mcg. An oral bite block was inserted for protection of oral dentition. The multiplane transesophageal echocardiogram probe was inserted through the posterior oropharynx and advanced into the esophagus without difficulty. Multiple 2D images were obtained of the heart and its related structures. Color flow Doppler was used for evaluation. Spectral Doppler was also used. The atrial septum was interrogated with color flow Doppler. The transgastric view was attempted but was unable to be obtained. At the conclusion of the procedure the probe was removed with continuous suction without complications. The patient tolerated the procedure with no apparent complications. Conclusions Global left ventricular wall motion and contractility are within normal limits. There is normal left ventricular systolic function. The estimated ejection fraction is 60-65%. Ventricular septal wall motion has a post-operative appearance. The right ventricular chamber size and systolic function are within normal limits. A patent foramen ovale is not demonstrated by color Doppler. A bubble study was performed on a previous study and is not repeated today. There is no evidence of aortic regurgitation. There is mild mitral regurgitation. The mitral regurgitant jet is centrally directed. A mass is visualized on the mitral valve which appears consistent with a vegetation.measuring 0.4 cm x 0.6 cm. A porcine bioprosthetic mitral valve is present. The bioprosthetic mitral valve appears to be functioning abnormally secondary to the presence of a vegetation. There is mild tricuspid regurgitation. There is no significant pericardial effusion. No recent RAPHAEL studies for comparison Measurements Name Value Normal Range Aortic Annulus 2.2 cm (1.4 - 2.6) Ao root diameter (2D) 3.6 cm (2.1 - 3.5) Ascending Ao 3.2 cm (2.1 - 3.4) Name Value Normal Range MV E-wave Vmax 1.6 m/sec - MV deceleration time 299 msec - MV A-wave Vmax 1.5 m/sec - MV E:A ratio 1.1 ratio - Name Value Normal Range AV Vmax 2.3 m/sec - AV peak gradient 21.5 mmHg -
[2017-07-19] MEDS ORDERED: ceFAZolin 1 GM VIAL(*) 2 GM in NS 0.9% 100 ML* 100 ML IVPB SCH (18:00)
[2017-07-19] MEDS: Ibuprofen TAB* 600 MG PO PRN (18:06)
[2017-07-19] MEDS: Atorvastatin* 80 MG TAB PO SCH (18:06)
[2017-07-19] MEDS: Rivaroxaban TAB(*) 20 MG TAB PO SCH (18:07)
[2017-07-19] MEDS: ceFAZolin 2 GM PREMIX (*) 2 GM/50 ML BAG IVPB SCH (19:40)
[2017-07-20] MEDS: NS 0.9% 1000 ML* 1,000 ML IV SCH (00:32)
[2017-07-20] MEDS: ceFAZolin 2 GM PREMIX (*) 2 GM/50 ML BAG IVPB SCH ×3 (02:22→21:40)
[2017-07-20] MEDS: Omeprazole CAP* 20 MG PO SCH (05:39)
[2017-07-20] MEDS ORDERED: Vancomycin Trough Check NOTE FOLLOW UP ONE (07:30)
[2017-07-20 08:02] LABS: Comments Flag Yes; Hematocrit 42 % (42-52); Hemoglobin 14.4 g/dl (14.0-18.0); Mean Corpuscular HGB Conc 35 g/dl (31-36); Mean Corpuscular Hemoglobin 31 pg (27-31); Mean Corpuscular Volume 90 fL (80-94); Mean Platelet Volume 7 um3 (7.4-10.4); Red Blood Count 4.63 10^6/ul (4.0-5.4); Red Cell Distribution Width 14 % (10.5-15); White Blood Count 6.2 10^3/ul (3.5-10.8)
[2017-07-20 08:03] LABS: Add Diff/Slide Review? Slide Review Added
[2017-07-20] MEDS: Aspirin EC Low Dose* 81 MG TAB.EC PO SCH (08:07)
[2017-07-20] MEDS: buPROPion SR TAB.SR* 200 MG PO SCH ×2 (08:07→21:44)
[2017-07-20] MEDS: Docusate CAP* 100 MG PO SCH ×2 (08:07→21:44)
[2017-07-20] MEDS: Metoprolol Succinate XL TAB* 25 MG PO SCH ×2 (08:07→21:44)
[2017-07-20] MEDS: Triamcinolone 0.5% OINT * 15 GM TUBE TOPICAL SCH ×3 (08:08→22:36)
[2017-07-20] MEDS: FENOFIBRATE PO SCH (08:08)
[2017-07-20 08:16] LABS: EGFR African American 99.8 (>60); EGFR Non-African American 77.6 (>60)
[2017-07-20 08:36] LABS: Immature Granulocytes 15 % (0-9); Neutrophil % 71 % (38-83); Reactive Lymph % 1 % (0-6)
[2017-07-20 08:37] LABS: Add Path Review? YES; RBC Morphology Normal (Normal)
--- NOTE | 2017-07-20 12:00 | PN ---
Subjective Date of Service: 07/20/17 Interval History: This is a 56 yo male with h/o multiple episodes of endocarditis who presented with c/o fever and arthralgias. Blood cultures are positive for MSSA and vegetation seen on his previously replaced mitral valve. Patient has been afebrile now for ~18 hrs. Patient denies CP, SOB. His arthralgias have improved slightly. No chills today. Objective Active Medications: Acetaminophen (Tylenol Tab*) 650 mg PO Q6H PRN PRN Reason: FEVER/PAIN Last Admin: 07/19/17 09:22 Dose: 650 mg Aspirin (Aspirin Ec Low Dose*) 81 mg PO DAILY [facility] Last Admin: 07/20/17 08:07 Dose: 81 mg Atorvastatin Calcium (Lipitor*) 80 mg PO QPM [facility] Last Admin: 07/19/17 18:06 Dose: 80 mg Bupropion HCl (Wellbutrin Sr Tab*) 200 mg PO BID [facility] Last Admin: 07/20/17 08:07 Dose: 200 mg Docusate Sodium (Colace Cap*) 200 mg PO BID [facility] Last Admin: 07/20/17 08:07 Dose: 200 mg Sodium Chloride (Ns 0.9% 1000 Ml*) 1,000 mls @ 100 mls/hr IV PER RATE [facility] Last Admin: 07/20/17 00:32 Dose: 100 mls/hr Cefazolin Sodium/Dextrose (Kefzol 2 Gm Premix(*)) 2 gm in 50 mls @ 100 mls/hr IVPB Q8H [facility] Last Admin: 07/20/17 02:22 Dose: 100 mls/hr Ibuprofen (Motrin Tab*) 600 mg PO Q8H PRN PRN Reason: PAIN Last Admin: 07/19/17 18:06 Dose: 600 mg Melatonin (Melatonin (Nf)) 3 mg PO BEDTIME PRN; Protocol PRN Reason: Sleep Metoprolol Succinate (Toprol Xl Tab*) 25 mg PO BID [facility] Last Admin: 07/20/17 08:07 Dose: 25 mg Nf: Fenofibrate [ (Fenofibrate] 56mg) 1 tab PO DAILY [facility] Last Admin: 07/20/17 08:08 Dose: Not Given Omeprazole (Prilosec Cap*) 20 mg PO DAILY@0600 [facility] Last Admin: 07/20/17 05:39 Dose: 20 mg Ondansetron HCl (Zofran Inj*) 4 mg IV Q6H PRN PRN Reason: NAUSEA Rivaroxaban (Xarelto (*)) 20 mg PO DAILY@1700 [facility] Last Admin: 07/19/17 18:07 Dose: 20 mg Triamcinolone Acetonide (Triamcinolone 0.5% Oint *) 1 applic TOPICAL TID [facility] Last Admin: 07/20/17 08:08 Dose: 1 applic Vital Signs - 8 hr 07/20/17 07:37 Temperature 98.8 F Pulse Rate 68 Respiratory 16 Rate Blood Pressure 123/56 (mmHg) O2 Sat by Pulse 96 Oximetry Oxygen Devices in Use Now: None Appearance: This is a mildly ill appearing middle aged gentleman in NAD Respiratory: Symmetrical Chest Expansion and Respiratory Effort, Clear to Auscultation Cardiovascular: NL Sounds; No Murmurs; No JVD, RRR Abdominal: NL Sounds; No Tenderness; No Distention Extremities: No Edema Skin: No Rash or Ulcers Neurological: Alert and Oriented x 3 Result Diagrams: 07/20/17 07:45 07/20/17 07:45 Additional Lab and Data: . Diagnostic Imaging: RAPHAEL - 4mm x 6mm mitral vegetation with mild MR Assess/Plan/Problems-Billing Assessment: Mr. Rhodes is a 56 yo male with a PMH of endocarditis x 3 and mitral valve replacement who was admitted on 07/18/17 with fever, chills, and rigors now confirmed to have staph aureus bacteremia and mitral valve vegetation. - Patient Problems (1) Endocarditis Comment: MSSA bacteremia (4/4 blood culture bottles) with mitral valve vegetation Porcine valve in place that still appears competent This is patient's 4th episode of endocarditis (last episode 2007), source is not obvious - no other hardware in place, no focal joint or skin symptoms Ancef per ID recommendations Repeat blood cultures drawn this am (2) Afib Comment: h/o pafib Continue xarelto. (3) Depression Comment: Stable symptoms Continue wellbutrin. (4) H/O mitral valve replacement Comment: Valve functioning appropriately per RAPHAEL with Dr. Ascencio (only mild MR) (5) Hyperlipidemia Comment: Continue atorvastatin, fenofibrate. (6) Hypertension Comment: SBP 110-120. Continue metoprolol. (7) DVT prophylaxis Comment: Xarelto (8) Full code status Comment: Status and Disposition: Inpatient. PICC following clear BCs, possibly tomorrow. Anticipate dc home following with home infusions.
[2017-07-20] MEDS ORDERED: Gentamicin ADULT per pharmacy 1 NOTE MISC FOLLOW UP PRN (16:17)
[2017-07-20] MEDS: Atorvastatin* 80 MG TAB PO SCH (17:55)
[2017-07-20] MEDS: Rivaroxaban TAB(*) 20 MG TAB PO SCH (17:55)
--- NOTE | 2017-07-20 21:23 | CONS ---
CONSULTATION REPORT: DATE OF CONSULT: 07/20/17 REQUESTING PROVIDER: Paty Patiño NP CONSULTING SERVICE: Infectious Disease. REASON FOR CONSULT: Prosthetic valve endocarditis. IMPRESSION: 1. 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 There is a 0.4 x 0.6 cm vegetation on the mitral valve, valve is otherwise working normally. He has no signs or symptoms of central nervous or peripheral embolization. He has no congestive heart failure. 2. Status post mitral valve replacement, 2007, in the setting of hypertrophic cardiomyopathy and mitral regurgitation. 3. Past infective endocarditis, multiple episodes before the valve prosthesis, some due to strep, some maybe due to staph. 4. PENICILLIN allergy caused throat swelling as a child. He is tolerating cefazolin here. RECOMMENDATION: 1. Recheck blood cultures, they are pending, when they are negative, he can have a PICC line. He has no indications for cardiothoracic surgery at this point. The previous feeling on prosthetic valve therapy with Staph aureus was that it should be treated with oxacillin and nafcillin and that there were issues with cefazolin failure, that is no longer current recommendation, so cefazolin is an acceptable agent for prosthetic valve Staph aureus endocarditis. We will also add gentamicin dosed for ideal body weight of 55 kg at 3 mg/kg for 24 hours in 2 divided doses, which will be 85 mg twice daily, the goal trough undetected. We will plan on 6 weeks of antibiotics. We will also be adding rifampin 900 mg daily once his blood cultures are cleared. He will have followup transesophageal echocardiogram at the end of his therapy to ensure the vegetation is not larger. 2. Because of his current use of an oral anticoagulant, will likely need a transition to warfarin so that we can follow his actual anticoagulation as rifampin will decrease in an unpredictable way the effectiveness of the newer oral anticoagulants. 3. I discussed with the patient that the use of gentamicin can cause decreased kidney function and loss of hearing and balance which may be irreversible. Our goal will be to closely monitor gentamicin trough, which is most predictive of toxicity; however, the ototoxicity and balance issues can be unrelated to trough levels and are idiosyncratic. He will notify us of any change in hearing or balance while on this therapy. HISTORY OF PRESENT ILLNESS: This is a 56-year-old man with history of endocarditis and on subsequent bioprosthetic mitral valve, which was replaced at [facility] in 2007. He has had no episodes of infective endocarditis since that time. A couple of days ago, he had the sudden onset of fever and rigors with chills, so he was directed to the ER by the on-call last ironer. He had a chest x-ray on 07/18/17 when he hit the ER that showed no active cardiopulmonary disease, he was febrile at 38 degrees Celsius. He was started on vancomycin, cefazolin. Blood cultures were taken, 4/4 bottles growing Staph aureus. PCR was positive for Staph aureus and negative for MRSA. He has had fever off and on here including 38.4 last night. None today so far. His chills and aches are persistent but little bit improved. He did have dental work about a month ago, no fillings or drilling. He had a white count 12,000 when he got here, it is 6000 today. His troponin was 0.05, creatinine 1. PAST MEDICAL HISTORY: 1. Hypertrophic cardiomyopathy. 2. Mitral regurgitation, status post mitral valve replacement with bioprosthetic valve, 2007. 3. Past infective endocarditis. 4. Status post myomectomy. 5. Status post radiofrequency ablation x2. 6. Cholecystectomy. 7. Atrial fibrillation. 8. Hyperlipidemia. 9. Depression. ALLERGIES: PENICILLIN caused throat swelling as a teenager. FAMILY HISTORY: No recurrent infections. SOCIAL HISTORY: He lives in [place] with family. There is no travel or sick contacts. REVIEW OF SYSTEMS: A 14-point review of systems was all negative and as noted above. PHYSICAL EXAM: Vital Signs: Temperature 36.7, heart rate 64, respiratory rate 20, blood pressure 142/57, O2 sat 98% on room air. In general, he is awake, not in distress. Neurologic: He is oriented x3, follows all commands. Strength is 5/5 in the biceps, triceps, quadriceps, tibialis anterior, gastrocnemius bilaterally. Sensation is intact to light touch in the upper and lower extremities bilaterally. HEENT: There is no conjunctival hemorrhage. Oropharynx: Without lesions. Neck: Supple without nuchal rigidity. Lymph Nodes : There is no cervical, supraclavicular, inguinal, axillary, or epitrochlear lymphadenopathy. Heart has regular rate and rhythm without murmurs, rubs or gallops. Lungs are clear to auscultation bilaterally. Abdomen: Soft, nontender, nondistended. There are bowel sounds present. Skin: There is no rash or splinter hemorrhages. Musculoskeletal: There is no spine tenderness on palpation. No joint synovitis. LABORATORY DATA: Creatinine 1.0. White blood cell count 6, hemoglobin 14, platelets 97. Please see impressions and recommendations as outlined above, which I have discussed with DYANA Mcclellan. Thanks for asking me to see Mr. Rhodes in consultation. [id number]/[facility] #: [id number] MTDD
[2017-07-20] MEDS: NS 0.9% IVPB SCH (22:37)
[2017-07-20] MEDS: GENTAMICIN ADULT IVPB SCH (22:37)
[2017-07-20] MEDS: Ibuprofen TAB* 600 MG PO PRN (23:29)
[2017-07-21] MEDS: ceFAZolin 2 GM PREMIX (*) 2 GM/50 ML BAG IVPB SCH ×3 (04:54→19:39)
[2017-07-21] MEDS: Omeprazole CAP* 20 MG PO SCH (04:59)
[2017-07-21] MEDS: FENOFIBRATE PO SCH (08:13)
[2017-07-21] MEDS: buPROPion SR TAB.SR* 200 MG PO SCH ×2 (08:18→20:30)
[2017-07-21] MEDS: Metoprolol Succinate XL TAB* 25 MG PO SCH ×2 (08:18→20:30)
[2017-07-21] MEDS: Docusate CAP* 100 MG PO SCH ×2 (08:18→20:30)
[2017-07-21] MEDS: Aspirin EC Low Dose* 81 MG TAB.EC PO SCH (08:18)
[2017-07-21 08:25] LABS: Hematocrit 40 % (42-52); Hemoglobin 14.4 g/dl (14.0-18.0); Mean Corpuscular HGB Conc 36 g/dl (31-36); Mean Corpuscular Hemoglobin 32 pg (27-31); Mean Corpuscular Volume 87 fL (80-94); Mean Platelet Volume 7 um3 (7.4-10.4); Red Blood Count 4.55 10^6/ul (4.0-5.4); Red Cell Distribution Width 14 % (10.5-15); White Blood Count 6.6 10^3/ul (3.5-10.8)
[2017-07-21 08:26] LABS: Comments Flag Yes
[2017-07-21 08:42] LABS: BUN/Creatinine Ratio 17.2 (8-20); Calcium 8.3 mg/dL (8.6-10.3); EGFR African American 117.2 (>60); EGFR Non-African American 91.1 (>60); Potassium 3.5 mmol/L (3.5-5.0)
[2017-07-21] MEDS: GENTAMICIN ADULT IVPB SCH ×2 (09:19→20:28)
[2017-07-21] MEDS: Triamcinolone 0.5% OINT * 15 GM TUBE TOPICAL SCH ×3 (09:19→20:31)
[2017-07-21] MEDS: NS 0.9% IVPB SCH ×2 (09:19→20:28)
--- NOTE | 2017-07-21 10:57 | PN ---
Progress Note - Progress Note Date of Service: 07/21/17 SOAP: Subjective: CC: endocarditis HPI: 56 year old man with bioprosthetic MV; now with fever and rigors. No fever , rash, or diarrhea. No hearing or balance changes. Tolerating antibiotics well. Fever today. Objective: Vital Signs Temp 36.6 C 07/21/17 07:47 Pulse 61 07/21/17 07:47 Resp 16 07/21/17 07:47 BP 140/76 07/21/17 07:47 Pulse Ox 97 07/21/17 07:47 Intake & Output 07/20/17 07/21/17 07/21/17 18:59 06:59 18:59 Intake Total 620 220 Output Total 400 0 Balance 220 220 Intake: IV Fluids 60 NS (0.9%) 60 IVPB 60 160 ABX - CEFAZOLIN 105 ABX - GENTAMYCIN 55 NS (0.9%) 60 Oral 560 0 Output: Urine 400 0 Other: Estimated Void Medium Large # Voids 2 1 Gen:awake, no distress Neuro: AAOx3 HEENT:PERRL, MMM Heart:RRR no murmur Lungs:CTA BL Abd:+BS NTND soft Skin: no rash Laboratory Results - last 24 hr 07/20/17 07/21/17 07/21/17 07:45 07:59 07:59 WBC 6.6 RBC 4.55 Hgb 14.4 Hct 40 L MCV 87 MCH 32 H MCHC 36 RDW 14 Plt Count 97 L MPV 7 L Neut % (Auto) 70.7 Lymph % (Auto) 16.4 L [place] % (Auto) 10.8 H Eos % (Auto) 1.7 Baso % (Auto) 0.4 Absolute Neuts (auto) 4.6 Absolute Lymphs (auto) 1.1 Absolute Monos (auto) 0.7 Absolute Eos (auto) 0.1 Absolute Basos (auto) 0 Absolute Nucleated RBC 0.01 Nucleated RBC % 0.1 Hem Pathologist Commnt Sodium 138 Potassium 3.5 Chloride 108 Carbon Dioxide 25 Anion Gap 5 BUN 15 Creatinine 0.87 Est GFR ( Amer) 117.2 Est GFR (Non-Af Amer) 91.1 BUN/Creatinine Ratio 17.2 Glucose 98 Calcium 8.3 L Microbiology 07/20/17 08:21 Aerobic Blood Culture - Preliminary Blood Venous No Growth Day 1 Anaerobic Blood Culture - Preliminary No Growth Day 1 07/18/17 21:39 Aerobic Blood Culture - Final Blood Venous Staphylococcus Aureus Anaerobic Blood Culture - Final Staphylococcus Aureus Blood MRSA/MSSA (PCR) - Final Mrsa Negative S.aureus Positive 07/18/17 21:13 Aerobic Blood Culture - Final Blood Venous Staphylococcus Aureus Anaerobic Blood Culture - Final Staphylococcus Aureus Blood MRSA/MSSA (PCR) - Final Mrsa Negative S.aureus Positive Assessment: 1. 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 Fever, due to #1 Plan: 1. when BC neg at 48 hours can have PICC 2. ancef 2 gm IV Q8hrs and gent 85 mg IV Q12hrs, will add rifampin 600 mg daily IV for now. Will need to change anticoag to warfarin so that the INR can be followed while on rifampin.
[2017-07-21] MEDS: RiFAMPin IV* 600 MG in NS 0.9% 250 ML* 250 ML IVPB SCH ×2 (13:03→23:55)
[2017-07-21] MEDS: Ibuprofen TAB* 600 MG PO PRN (13:07)
[2017-07-21] MEDS ORDERED: Warfarin TAB(*) 7.5 MG PO SCH (17:00)
[2017-07-21] MEDS: Atorvastatin* 80 MG TAB PO SCH (17:31)
--- NOTE | 2017-07-21 19:42 | PN ---
Subjective Date of Service: 07/21/17 Interval History: Patient offers no new complaints. Fever overnight to 100.6. No chest pain. Arthralgias are improving. Objective Active Medications: Acetaminophen (Tylenol Tab*) 650 mg PO Q6H PRN PRN Reason: FEVER/PAIN Last Admin: 07/19/17 09:22 Dose: 650 mg Aspirin (Aspirin Ec Low Dose*) 81 mg PO DAILY [facility] Last Admin: 07/21/17 08:18 Dose: 81 mg Atorvastatin Calcium (Lipitor*) 80 mg PO QPM [facility] Last Admin: 07/21/17 17:31 Dose: 80 mg Bupropion HCl (Wellbutrin Sr Tab*) 200 mg PO BID [facility] Last Admin: 07/21/17 08:18 Dose: 200 mg Docusate Sodium (Colace Cap*) 200 mg PO BID [facility] Last Admin: 07/21/17 08:18 Dose: 200 mg Enoxaparin Sodium (Lovenox(*)) 100 mg SUBCUT Q12H [facility] Gentamicin Sulfate 85 mg/ (Sodium Chloride) 102.125 mls @ 200 mls/hr IVPB Q12HR [facility] Last Admin: 07/21/17 09:19 Dose: 200 mls/hr Cefazolin Sodium/Dextrose (Kefzol 2 Gm Premix(*)) 2 gm in 50 mls @ 100 mls/hr IVPB Q8H [facility] Last Admin: 07/21/17 12:16 Dose: 100 mls/hr Rifampin 600 mg/ Sodium (Chloride) 260 mls @ 130 mls/hr IVPB Q12H [facility] Last Admin: 07/21/17 13:03 Dose: 130 mls/hr Ibuprofen (Motrin Tab*) 600 mg PO Q8H PRN PRN Reason: PAIN Last Admin: 07/21/17 13:07 Dose: 600 mg Melatonin (Melatonin (Nf)) 3 mg PO BEDTIME PRN; Protocol PRN Reason: Sleep Metoprolol Succinate (Toprol Xl Tab*) 25 mg PO BID [facility] Last Admin: 07/21/17 08:18 Dose: 25 mg Nf: Fenofibrate [ (Fenofibrate] 56mg) 1 tab PO DAILY [facility] Last Admin: 07/21/17 08:13 Dose: Not Given Omeprazole (Prilosec Cap*) 20 mg PO DAILY@0600 [facility] Last Admin: 07/21/17 04:59 Dose: 20 mg Ondansetron HCl (Zofran Inj*) 4 mg IV Q6H PRN PRN Reason: NAUSEA Pharmacy Consult (Gentamicin Adult Per Pharmacy) 1 note FOLLOW UP .GENT PER PHARMACY PRN PRN Reason: PER PROTOCOL Stop: 08/03/17 16:17 Pharmacy Profile Note (Gentamicin Peak Level*) 1 note FOLLOW UP 0930 ONE Stop: 07/22/17 09:31 Pharmacy Profile Note (Gentamicin Trough Level) 1 note FOLLOW UP 0830 ONE Stop: 07/22/17 08:31 Triamcinolone Acetonide (Triamcinolone 0.5% Oint *) 1 applic TOPICAL TID [facility] Last Admin: 07/21/17 13:53 Dose: 1 applic Warfarin Sodium (Coumadin Tab(*)) 7.5 mg PO DAILY@1700 SHERRI PRN Reason: Protocol Last Admin: 07/21/17 17:31 Dose: 7.5 mg Vital Signs - 8 hr 07/21/17 15:54 Temperature 97.7 F Pulse Rate 64 Respiratory 17 Rate Blood Pressure 146/69 (mmHg) O2 Sat by Pulse 99 Oximetry Oxygen Devices in Use Now: None Appearance: Well appearing in NAD Respiratory: Symmetrical Chest Expansion and Respiratory Effort, Clear to Auscultation Cardiovascular: NL Sounds; No Murmurs; No JVD, RRR Abdominal: NL Sounds; No Tenderness; No Distention Extremities: No Edema Skin: No Rash or Ulcers Neurological: Alert and Oriented x 3 Result Diagrams: 07/21/17 07:59 07/21/17 07:59 Additional Lab and Data: . Microbiology and Other Data: Microbiology 07/20/17 12:28 Aerobic Blood Culture - Preliminary Blood Venous No Growth Day 1 Anaerobic Blood Culture - Preliminary No Growth Day 1 07/20/17 08:21 Aerobic Blood Culture - Preliminary Blood Venous No Growth Day 1 Anaerobic Blood Culture - Preliminary No Growth Day 1 Diagnostic Imaging: RAPHAEL - 4mm x 6mm mitral vegetation with mild MR Assess/Plan/Problems-Billing Assessment: Mr. Rhodes is a 56 yo male with a PMH of endocarditis x 3 and mitral valve replacement who was admitted on 07/18/17 with fever, chills, and rigors now confirmed to have staph aureus bacteremia and mitral valve vegetation. - Patient Problems (1) Endocarditis Comment: MSSA bacteremia (4/4 blood culture bottles) with mitral valve vegetation Porcine valve in place that still appears competent This is patient's 4th episode of endocarditis (last episode 2007), source is not obvious - no other hardware in place, no focal joint or skin symptoms Repeat blood cultures clear after 48hrs of abx ID consult appreciated who has recommended Ancef, Rifampin and gentamicin (2) Afib Comment: h/o pafib Xarelto and Rifampin have a notable reaction, decreasing efficacy of Xarelto Recommendation to switch to Coumadin while on Rifampin with Lovenox bridge, patient is agreeable with this plan (3) Depression Comment: Stable symptoms Continue wellbutrin. (4) H/O mitral valve replacement Comment: Valve functioning appropriately per RAPHAEL with Dr. Ascencio (only mild MR) (5) Hyperlipidemia Comment: Continue atorvastatin, fenofibrate. (6) Hypertension Comment: SBP 110-120. Continue metoprolol. (7) DVT prophylaxis Comment: Lovenox bridging to Coumadin (8) Full code status Comment: Status and Disposition: Inpatient. PICC placement tomorrow. Anticipate dc home following with home infusions.
[2017-07-22] MEDS: ceFAZolin 2 GM PREMIX (*) 2 GM/50 ML BAG IVPB SCH ×2 (05:16→12:02)
[2017-07-22] MEDS: Omeprazole CAP* 20 MG PO SCH (05:19)
[2017-07-22] MEDS ORDERED: Gentamicin Trough Level 1 NOTE MISC FOLLOW UP ONE (08:30)
[2017-07-22] MEDS ORDERED: Enoxaparin(*) 100 MG/ML SYR SUBCUT SCH (09:00)
[2017-07-22] MEDS: Metoprolol Succinate XL TAB* 25 MG PO SCH (09:08)
[2017-07-22] MEDS: Docusate CAP* 100 MG PO SCH (09:08)
[2017-07-22] MEDS: Aspirin EC Low Dose* 81 MG TAB.EC PO SCH (09:08)
[2017-07-22] MEDS: buPROPion SR TAB.SR* 200 MG PO SCH (09:08)
[2017-07-22] MEDS: Triamcinolone 0.5% OINT * 15 GM TUBE TOPICAL SCH ×2 (09:10→12:08)
[2017-07-22] MEDS: FENOFIBRATE PO SCH (09:10)
[2017-07-22 09:15] LABS: BUN/Creatinine Ratio 17.5 (8-20); Calcium 8.7 mg/dL (8.6-10.3); EGFR African American 129.1 (>60); EGFR Non-African American 100.4 (>60); Potassium 3.7 mmol/L (3.5-5.0)
[2017-07-22] MEDS: NS 0.9% IVPB SCH (09:25)
[2017-07-22] MEDS: GENTAMICIN ADULT IVPB SCH (09:25)
[2017-07-22] MEDS ORDERED: Gentamicin PEAK LEVEL* 1 NOTE MISC FOLLOW UP ONE (09:30)
[2017-07-22] MEDS: RiFAMPin IV* 600 MG in NS 0.9% 250 ML* 250 ML IVPB SCH (12:51)
[2017-07-22 12:53] VITALS: BP 136/64
--- NOTE | 2017-07-22 16:32 | RAD ---
INDICATION: Fever. Endocarditis COMPARISON: July 18, 2017 TECHNIQUE: An AP portable view obtained at 1615 hours is submitted. FINDINGS: Bones/Soft Tissues: There are no acute bony findings. There is sternotomy Cardiomediastinal: The cardiomediastinal silhouette is normal. Lungs: There is an infiltrate in the medial right lung base. Pleura: There are no pleural effusions. Other: None IMPRESSION: NEW INFILTRATE MEDIAL RIGHT LUNG BASE
[2017-07-22] MEDS ORDERED: ceFAZolin 2 GM PREMIX (*) 2 GM/50 ML BAG IVPB ONE (17:00)
[2017-07-22] MEDS ORDERED: GENTAMICIN ADULT IVPB ONE (17:00)
[2017-07-22] MEDS ORDERED: NS 0.9% IVPB ONE (17:00)
--- NOTE | 2017-07-23 06:08 | DS ---
CC: Dr. Carlton; Dr. Sullivan; Dr. Arce* DISCHARGE SUMMARY: DATE OF ADMISSION: 07/19/17 DATE OF DISCHARGE: 07/22/17 PRIMARY CARE PROVIDER: Dr. Carlton. CONSULTING INFECTIOUS DISEASE SPECIALIST: Dr. Arce. PRIMARY CONTACT CENTRE SUPERVISOR: Dr. Sullivan. DISCHARGING PROVIDER: DYANA Rodriges SUPERVISING PHYSICIAN: Dr. [place]* (dictated by DYANA Rodriges). PRIMARY DISCHARGE DIAGNOSIS: Acute infective endocarditis secondary to methicillin- sensitive Staphylococcus aureus with vegetation of bioprosthetic mitral valve. SECONDARY DISCHARGE DIAGNOSES: 1. Atrial fibrillation - rate controlled and previously anticoagulated with Xarelto, transitioned to Coumadin being bridged with Lovenox due to interaction with rifampin. 2. Depression. 3. History of bioprosthetic mitral valve. 4. Hypertension. 5. Hyperlipidemia. DISCHARGE MEDICATIONS: 1. Aspirin 81 mg p.o. daily. 2. Atorvastatin 80 mg p.o. daily. 3. Bupropion 200 mg p.o. twice daily. 4. Cefazolin 2 g IV q.8 hours x6 weeks, through 08/31/17. 5. Coenzyme Q10 200 mg p.o. daily. 6. Lovenox 150 mg subcu daily until INR is greater than 2. 7. Fenofibrate 54 mg p.o. daily. 8. Gentamicin 85 mg IV twice daily x2 weeks through 08/03/17. 9. Metoprolol tartrate 25 mg p.o. twice daily. 10. Multivitamin 1 tablet p.o. daily. 11. [place]-3 fatty acid 2 capsules p.o. twice daily. 12. Rifampin 900 mg p.o. daily x6 weeks through 08/31/17. 13. Coumadin 7.5 mg p.o. daily. Medication changes: 1. Ancef x6 weeks. 2. Gentamicin x2 weeks. 3. Rifampin orally x6 weeks. 4. Stop Xarelto. 5. Start Lovenox. 6. Start Coumadin. HOSPITAL IMAGIN. Chest x-ray, 07/18/17, shows no acute process. 2. Chest x-ray, 07/22/17, shows appropriate placement of PICC. 3. Transesophageal echocardiogram shows normal EF of 60% to 65%, 4 x 6 mm mass present on the mitral valve with mild associated regurg, but overall normal functioning bioprosthetic mitral valve without any other significant valvular disease. 4. Transthoracic echocardiogram again shows normal LV function at 60% to 65%. Bioprosthetic mitral valve present which appears normal, no obvious vegetation appreciated. HOSPITAL COURSE: This is a very pleasant 56-year-old gentleman, who has unfortunately had 3 prior episodes of endocarditis, who had a mitral valve replacement with a bioprosthetic valve in 2007 along with the septal myomectomy , who also has paroxysmal atrial fibrillation, who presented to the emergency department with complaints of fever and arthralgias. The patient reported the symptoms are similar to his prior episodes of endocarditis. He denied associated chest pain or shortness of breath. Initial lab showed moderate leukocytosis with the white blood cell count of 8900. Chemistries showed mildly elevated troponin at 0.04, otherwise unremarkable. Initial lactic acid within normal limits. Chest x- ray was nonrevealing. Blood cultures were obtained and the patient was empirically treated for suspected endocarditis with vancomycin, which was eventually switched in favor to cefazolin after MSSA bacteremia was confirmed. 4/4 blood culture bottles grew methicillin-sensitive Staph aureus. Repeat blood cultures on hospital day 2 were negative for growth of 48 hours at the time of discharge. The patient became afebrile on hospital day 2 and reported improvement in associated arthralgias. Transthoracic echocardiogram was performed initially which showed no evidence of vegetations, but transesophageal echocardiogram confirms the presence of 4 x 6 mm vegetation on the mitral valve, which appeared to be functioning relatively normally with the exception of mild regurg. Infectious disease specialist, Dr. Lopez Arce, was consulted who suggested switching from vancomycin to Ancef with the addition of rifampin after blood cultures cleared and gentamicin. The patient tolerated the treatment well and had a PICC placed prior to discharge. DISPOSITION/FOLLOWUP PLAN: The patient is being discharged to home with instructions on home infusions. There is a PICC line in place in his left arm. He will receive Ancef for a total of 6 weeks and oral rifampin for 6 weeks as well as IV gentamicin for 2 weeks. The patient will require biweekly gentamicin troughs while using the gentamicin and weekly CBCs, comprehensive metabolic panels, and CRP to be followed by Dr. Arce. Of note, there is interaction between rifampin and Xarelto, decreasing efficacy of Xarelto which is similar among all NOACs and for this reason, the patient was transitioned to Coumadin with a bridge of Lovenox and his INR is 1.34 at the time of discharge. Instructions given to repeat an INR on 07/27/17, and to follow up with Dr. Sullivan's office on instructions as to whether he needs to continue Lovenox or whether that can be discontinued if an INR is greater than 2 or further dose adjustment is required of the Coumadin at that time. The patient requires followup with Dr. Sullivan, shop lead, in approximately 2 weeks as well as primary care provider, Dr. Carlton, in approximately 1 week and infectious disease specialist, Dr. Arce, in approximately 2 weeks. TIME SPENT: Greater than 60 minutes was spent on this discharge. DYANA RODRIGES [id number]/[facility] #: [id number] [facility]
== END 2017-07-22 17:45 | disposition home or self-care (01) | DRG 206 ==
LOC: ED 20:53 → MED 23:37
PROVIDERS: ADMIT Hospitalist; ATTEND Hospitalist
PROC: B24BZZ4 Ultrasonography of Heart with Aorta, Transesophageal (ICD-10-PCS; 2017-07-19)
PROC: 02HV33Z Insertion of Infusion Device into Superior Vena Cava, Percutaneous Approach (ICD-10-PCS; principal; 2017-07-22)
DX: T82.6XXA Infection and inflammatory reaction due to cardiac valve prosthesis, initial encounter (principal); I33.0 Acute and subacute infective endocarditis; R78.81 Bacteremia; I42.2 Other hypertrophic cardiomyopathy; B95.61 Methicillin susceptible Staphylococcus aureus infection as the cause of diseases classified elsewhere; Y71.2 Prosthetic and other implants, materials and accessory cardiovascular devices associated with adverse incidents; F32.9 Major depressive disorder, single episode, unspecified; I10 Essential (primary) hypertension; I48.0 Paroxysmal atrial fibrillation; I34.0 Nonrheumatic mitral (valve) insufficiency; L30.9 Dermatitis, unspecified; E78.2 Mixed hyperlipidemia; E66.9 Obesity, unspecified; G47.30 Sleep apnea, unspecified; R40.2412 Glasgow coma scale score 13-15, at arrival to emergency department; Y92.9 Unspecified place or not applicable; Z79.82 Long term (current) use of aspirin; Z79.01 Long term (current) use of anticoagulants; Z88.0 Allergy status to penicillin; Z90.49 Acquired absence of other specified parts of digestive tract; Z72.89 Other problems related to lifestyle; Z68.29 Body mass index [BMI] 29.0-29.9, adult
CPT/HCPCS: 36415; 71010; 80048; 80053; 80170; 80202; 81003; 81015; 82550; 82565; 83605; 83880; 84484; 84520; 85025; 85060; 85384; 85610; 85652; 85730; 86140; 87040; 87077; 87150; 87186; 87205; 87502; 93005; 93306; 93312; 93325; 99156; 99157; A9270-GY; J0690; J0692; J1580; J1650; J2250; J2310; J3010; J3370

== ENCOUNTER 2017-11-29 10:27 | Observation (INO) | payer BC ==
[2017-11-29] MEDS ORDERED: NS 0.9% 1000 ML* 1,000 ML IV ONE (11:05)
[2017-11-29 11:24] LABS: ABS Basophils 0.1 10^3/ul (0-0.2); ABS Eosinophils 0.3 10^3/ul (0-0.6); ABS Lymphocytes 2.3 10^3/ul (1.0-4.8); ABS Monocytes 1.1 10^3/ul (0-0.8); ABS Neutrophils 6.5 10^3/ul (1.5-7.7); ABS Nucleated RBC 0 10^3/ul; Eosinophil % 3.1 % (0-6); Hematocrit 45 % (42-52); Hemoglobin 15.8 g/dl (14.0-18.0); Lymphocyte % 22.7 % (25-47); Mean Corpuscular HGB Conc 35 g/dl (31-36); Mean Corpuscular Hemoglobin 31 pg (27-31); Mean Corpuscular Volume 87 fL (80-94); Nucleated Red Blood Cells % 0.1; Platelet Count 241 10^3/ul (150-450); Red Blood Count 5.17 10^6/ul (4.0-5.4); Red Cell Distribution Width 15 % (10.5-15); White Blood Count 10.3 10^3/ul (3.5-10.8)
[2017-11-29 11:34] LABS: INR 1.39 (0.77-1.02)
[2017-11-29 11:47] LABS: EGFR Non-African American 70.7 (>60)
[2017-11-29] MEDS ORDERED: Diltiazem DRIP* 100 MG/100 ML ADDV.BAG IVPB ONE (12:46)
[2017-11-29] MEDS ORDERED: Diltiazem IV* 5 MG/ML 5 ML VIAL (for loading dose/IV Push) (25 MG) IV SLOW PU ONE (12:46)
[2017-11-29] MEDS ORDERED: Magnesium Sulfate 2 GM IV* 2 GM/50 ML BAG IVPB ONE (14:01)
--- NOTE | 2017-11-29 15:25 | ED ---
Az Solis Nilda, scribed for Mau Raygoza MD on 11/29/17 at 1105 . HPI Cardiac - HPI Summary HPI Summary: This patient is a 57 year old M presenting to [facility] with a chief complaint of constant fast heartbeat today. The patient rates the pain 0/10 in severity. Symptoms aggravated and alleviated by nothing. Patient reports general malaise with SOB for the past week. He states last week he was seen for symptoms and physician believed pt had virus. PMHx includes endocarditis, LBBB, and A-fib. - History of Current Complaint Chief Complaint: EDGeneral Stated Complaint: DROWSINESS/WEAKNESS Time Seen by Provider: 11/29/17 10:33 Hx Obtained From: Patient Onset/Duration: Started Hours Ago, Still Present Timing: Constant Pain Intensity: 0 Pain Scale Used: 0-10 Numeric Character: Fast Aggravating Factor(s): Nothing Alleviating Factor(s): Nothing Associated Signs and Symptoms: Positive: Other: - general malaise with SOB - Additional Pertinent History Primary Care Physician: BILL - Allergy/Home Medications Allergies/Adverse Reactions: Allergies Allergy/AdvReac Type Severity Reaction Status Date / Time Penicillins Allergy Anaphylatic Verified 11/29/17 10:39 Shock Home Medications: Home Medications Aspirin EC TAB* [Ecotrin EC Low Dose 81 MG*] 81 mg PO DAILY 11/29/17 [History Confirmed 11/29/17] Atorvastatin* [Lipitor*] 80 mg PO QPM 11/29/17 [History Confirmed 11/29/17] Fenofibrate(NF) [Tricor(NF)] 54 mg PO DAILY 11/29/17 [History Confirmed 11/29/17 ] Metoprolol Succinate XL TAB* [Toprol XL TAB*] 25 mg PO BID 11/29/17 [History Confirmed 11/29/17] Multivitamins/Minerals TAB* [Theragran/minerals TAB*] 1 tab PO DAILY 11/29/17 [ History Confirmed 11/29/17] [id number] Ethyl Esters (NF) [Lovaza (NF)] 2 gm PO BID 11/29/17 [History Confirmed 11/29/17] Rivaroxaban TAB(*) [Xarelto 10 mg (*)] 20 mg PO DAILY 11/29/17 [History Confirmed 11/29/17] Ubidecarenone [Co Q-10] 200 mg PO DAILY 11/29/17 [History Confirmed 11/29/17] buPROPion SR TAB* [Wellbutrin SR TAB*] 200 mg PO BID 11/29/17 [History Confirmed 11/29/17] PMH/Surg Hx/FS Hx/Imm Hx Cardiovascular History: Reports: Other Cardiovascular Problems/Disorders - ENDOCARDITIS, HYPERTROPHIC CARDIOMYOPATHY, MITRAL VALVE REPLACEMENT Denies: Hx Pacemaker/ICD Respiratory History: Reports: Other Respiratory Problems/Disorders - SLEEP APNEA Sensory History: Reports: Hx Contacts or Glasses - reading glasses Denies: Hx Hearing Aid Opthamlomology History: Reports: Hx Contacts or Glasses - reading glasses Psychiatric History: Reports: Hx Depression Denies: Hx Panic Disorder - Surgical History Surgery Procedure, Year, and Place: 2007 GALLBLADDER, MYOMECTOMY WITH A BIOPROTHETIC MITRAL VALVE REPLACEMENT BICOR, Infectious Disease History: No Infectious Disease History: Denies: Traveled Outside the [place] in Last 30 Days - Family History Known Family History: Negative: Cardiac Disease, Hypertension, Diabetes Family History: R & n/C - Social History Alcohol Use: Occasionally Hx Substance Use: No Substance Use Type: Reports: None Hx Tobacco Use: No Smoking Status (MU): Never Smoked Tobacco Review of Systems Positive: Other - general malaise Positive: Other - fast heart beat Positive: Shortness Of Breath All Other Systems Reviewed And Are Negative: Yes Physical Exam - Summary Physical Exam Summary: Appearance: The patient is well-nourished in no acute distress and in no acute pain. Skin: The skin is warm and dry and skin color reflects adequate perfusion. HEENT: The head is normocephalic and atraumatic. The pupils are equal and reactive. The conjunctivae are clear and without drainage. Nares are patent and without drainage. Mouth reveals moist mucous membranes and the throat is without erythema and exudate. The external ears are intact. The ear canals are patent and without drainage. The tympanic membranes are intact. Neck: the neck is supple with full range of motion and non-tender. There are no carotid bruits. There is no neck vein distension. Respiratory: Chest is non-tender. Lungs are clear to auscultation and breath sounds are symmetrical and equal. Cardiovascular: Heart is tachycardic. There is no murmur or rub auscultated. There is no peripheral edema and pulses are symmetrical and equal. Abdomen: The abdomen is soft and non-tender. There are normal bowel sounds heard in all four quadrants and there is no organomegaly palpated. Musculoskeletal: There is no back tenderness noted. Extremities are non-tender with full range of motion. There is good capillary refill. There is no peripheral edema or calf tenderness elicited. Neurological: Patient is alert and oriented to person, place and time. The patient has symmetrical motor strength in all four extremities. Cranial nerves are grossly intact. Deep tendon reflexes are symmetrical and equal in all four extremities. Psychiatric: The patient has an appropriate affect and does not exhibit any anxiety or depression. Triage Information Reviewed: Yes Vital Signs On Initial Exam: Initial Vitals Temp Pulse Resp BP Pulse Ox 97.1 F 124 15 114/86 96 11/29/17 10:34 11/29/17 10:34 11/29/17 10:34 11/29/17 10:34 11/29/17 10:34 Vital Signs Reviewed: Yes Diagnostics - Vital Signs Vital Signs Temp Pulse Resp BP Pulse Ox 11/29/17 10:34 97.1 F 124 15 114/86 96 - Laboratory Lab Results: Lab Results 11/29/17 11/29/17 11/29/17 Range/Units 11:13 11:13 11:13 WBC 10.3 (3.5-10.8) 10^3/ul RBC 5.17 (4.0-5.4) 10^6/ul Hgb 15.8 (14.0-18.0) g/dl Hct 45 (42-52) % MCV 87 (80-94) fL MCH 31 (27-31) pg MCHC 35 (31-36) g/dl RDW 15 (10.5-15) % Plt Count 241 (150-450) 10^3/ul MPV 7.0 L (7.4-10.4) um3 Neut % (Auto) 62.6 (38-83) % Lymph % (Auto) 22.7 L (25-47) % [place] % (Auto) 10.5 H (0-7) % Eos % (Auto) 3.1 (0-6) % Baso % (Auto) 1.1 (0-2) % Absolute Neuts (auto) 6.5 (1.5-7.7) 10^3/ul Absolute Lymphs (auto) 2.3 (1.0-4.8) 10^3/ul Absolute Monos (auto) 1.1 H (0-0.8) 10^3/ul Absolute Eos (auto) 0.3 (0-0.6) 10^3/ul Absolute Basos (auto) 0.1 (0-0.2) 10^3/ul Absolute Nucleated RBC 0 10^3/ul Nucleated RBC % 0.1 ESR 1 (0-20) mm/Hr INR (Anticoag Therapy) 1.39 H (0.77-1.02) Sodium 138 L (139-145) mmol/L Potassium 4.6 (3.5-5.0) mmol/L Chloride 108 (101-111) mmol/L Carbon Dioxide 23 (22-32) mmol/L Anion Gap 7 (2-11) mmol/L BUN 31 H (6-24) mg/dL Creatinine 1.08 (0.67-1.17) mg/dL Est GFR ( Amer) 91.0 (>60) Est GFR (Non-Af Amer) 70.7 (>60) BUN/Creatinine Ratio 28.7 H (8-20) Glucose 90 (70-100) mg/dL Lactic Acid (0.5-2.0) mmol/L Calcium 9.4 (8.6-10.3) mg/dL Magnesium 1.8 L (1.9-2.7) mg/dL Total Bilirubin 0.80 (0.2-1.0) mg/dL AST 11 L (13-39) U/L ALT 27 (7-52) U/L Alkaline Phosphatase 64 (34-104) U/L Troponin I 0.03 (<0.04) ng/mL C-Reactive Protein 5.15 H (< 5.00) mg/L Total Protein 6.6 (6.4-8.9) g/dL Albumin 4.1 (3.2-5.2) g/dL Globulin 2.5 (2-4) g/dL Albumin/Globulin Ratio 1.6 (1-3) TSH 3.78 (0.34-5.60) mcIU/mL 11/29/17 Range/Units 11:13 WBC (3.5-10.8) 10^3/ul RBC (4.0-5.4) 10^6/ul Hgb (14.0-18.0) g/dl Hct (42-52) % MCV (80-94) fL MCH (27-31) pg MCHC (31-36) g/dl RDW (10.5-15) % Plt Count (150-450) 10^3/ul MPV (7.4-10.4) um3 Neut % (Auto) (38-83) % Lymph % (Auto) (25-47) % [place] % (Auto) (0-7) % Eos % (Auto) (0-6) % Baso % (Auto) (0-2) % Absolute Neuts (auto) (1.5-7.7) 10^3/ul Absolute Lymphs (auto) (1.0-4.8) 10^3/ul Absolute Monos (auto) (0-0.8) 10^3/ul Absolute Eos (auto) (0-0.6) 10^3/ul Absolute Basos (auto) (0-0.2) 10^3/ul Absolute Nucleated RBC 10^3/ul Nucleated RBC % ESR (0-20) mm/Hr INR (Anticoag Therapy) (0.77-1.02) Sodium (139-145) mmol/L Potassium (3.5-5.0) mmol/L Chloride (101-111) mmol/L Carbon Dioxide (22-32) mmol/L Anion Gap (2-11) mmol/L BUN (6-24) mg/dL Creatinine (0.67-1.17) mg/dL Est GFR ( Amer) (>60) Est GFR (Non-Af Amer) (>60) BUN/Creatinine Ratio (8-20) Glucose (70-100) mg/dL Lactic Acid 0.7 (0.5-2.0) mmol/L Calcium (8.6-10.3) mg/dL Magnesium (1.9-2.7) mg/dL Total Bilirubin (0.2-1.0) mg/dL AST (13-39) U/L ALT (7-52) U/L Alkaline Phosphatase (34-104) U/L Troponin I (<0.04) ng/mL C-Reactive Protein (< 5.00) mg/L Total Protein (6.4-8.9) g/dL Albumin (3.2-5.2) g/dL Globulin (2-4) g/dL Albumin/Globulin Ratio (1-3) TSH (0.34-5.60) mcIU/mL Result Diagrams: 11/29/17 11:13 11/29/17 11:13 Lab Statement: Any lab studies that have been ordered have been reviewed, and results considered in the medical decision making process. - EKG 1037 Cardiac Rate: Tachycardia - 123, Other Rate - possible a-flutter EKG Rhythm: Sinus Tachycardia EKG Interpretation: Sinus Tachy vs A-flutter, with 2-1 block, LBBB Re-Evaluation - Re-Evaluation First Eval Re-Evaluation Time: 12:50 Comment: Reviewed labs, EKG, and admission plan with pt. Disposition - Course Course Of Treatment: [1206] Dr. Sullivan (toll bridge attendant) recommends admission. [ 1255] Dr. Rodríguez (hospitalist) agrees to admit pt. Assessment/Plan: Mr. Rhodes presented with the conceern that he was in A-fib again with tachycardic palpitations. He denied CP or SOB but felt weak and dizzy which is how he has felt when in A-fib in the past. His initial monitor showed a tachycardia that was indistinguishable between sinus tachycardia and a- flutter with 2:1 block. I tried hydrating him to see if that would allow me to dicriminate but it did not. Dr. Sullivan was uncertain about the ECG so we agreed to try diltiazem. Dr. Ascencio was product safety professional and also consulted and he agreed also. Cardizem was started and the rate slowed considerably. The hospitalist service was contacted for admission. - Diagnoses Provider Diagnoses: Atrial flutter with rapid ventricular response - Physician Notifications Discussed Care Of Patient With: Fernie Ascencio - Basket Hand Braider Time Discussed With Above Provider: 12:43 Instructed by Provider To: Other - recommends giving pt Cardizem - Critical Care Time Critical Care Time: 30-74 min Discharge - Sign-Out/Discharge Documenting (check all that apply): Discharge/Admit/Transfer - Discharge Plan Condition: Stable Disposition: ADMITTED TO [facility] Referrals: Kodi Carlton MD [Primary Care Provider] - - Billing Disposition and Condition Condition: STABLE [place] [facility] [place] The documentation as recorded by the Az olea Nilda accurately reflects the service I personally performed and the decisions made by , Mau Raygoza MD.
[2017-11-29] MEDS ORDERED: Acetaminophen TAB* 325 MG PO PRN (15:40)
[2017-11-29] MEDS ORDERED: Al Hydrox/Mg Hydrox/Simet LIQ* 30 ML UDC PO PRN (15:40)
[2017-11-29] MEDS ORDERED: Vancomycin(*) 2,000 MG in NS 0.9% 500 ML* 500 ML IVPB ONE (16:29)
[2017-11-29] MEDS ORDERED: Diltiazem TAB* 30 MG PO ONE (16:55)
[2017-11-29] MEDS ORDERED: Vancomycin per Pharmacy* NOTE FOLLOW UP PRN (17:45)
[2017-11-29] MEDS ORDERED: Atorvastatin* 80 MG TAB PO SCH (18:00)
[2017-11-29] MEDS: buPROPion SR TAB.SR* 200 MG PO SCH (21:06)
[2017-11-29] MEDS: Metoprolol Succinate XL TAB* 25 MG PO SCH (21:06)
[2017-11-29] MEDS: Rivaroxaban TAB(*) 20 MG TAB PO SCH (21:06)
[2017-11-29] MEDS: Vancomycin(*) 1,000 MG in NS 0.9% 250 ML* 250 ML IVPB SCH (23:09)
--- NOTE | 2017-11-30 02:27 | HP ---
CC: Dr. Carlton; Dr. Sullivan * HISTORY AND PHYSICAL: DATE OF ADMISSION: 11/29/17 PROVIDER: Jessica Lin NP. PRIMARY CARE PROVIDER: Dr. Carlton. ATTENDING PHYSICIAN WHILE IN THE HOSPITAL: Dr. Dhiraj Rodríguez * (dictated by Jessica Lin NP). CHIEF COMPLAINT: 1. Fatigue. 2. Shortness of breath. HISTORY OF PRESENT ILLNESS: Mr. Rhodes is a 57-year-old gentleman who carries past medical history significant for endocarditis x3, most recent being in July 2017, history of mitral valve replacement with porcine valve, hyperlipidemia, depression, hypertension, AFib/A-flutter, hypertrophic cardiomyopathies, status post myomectomy. Mr. Rhodes reported to the emergency room today with a 5-day history of feeling fatigued and shortness of breath. He states that he did not know that his heart was racing. He does report that approximately 1 week ago, Wednesday, he did see his primary care provider, Dr. Carlton, who at that time tested him for the flu, which was negative as he was feeling fatigued and thought that he may be in atrial fibrillation. He does report that when he is in atrial fibrillation he does get fatigued and feels he needs to take naps often. He also reports that he does get short of breath. An EKG was completed in Dr. Carlton's office at the time and he was found to be in sinus rhythm. On presentation to the emergency room today, he was found to be in atrial fibrillation. He was given Cardizem in the emergency room, a bolus and then a drip and converted to sinus rhythm in the 60s shortly after the drip started. On evaluation for admission, the patient continues to be in sinus rhythm at rate of 60. He denies any chest pain or shortness of breath. Denies any recent fevers or chills. He does say that he has had a nonproductive cough for the past 5 to 6 days as well as some shortness of breath. He denies any nausea or vomiting. Denies any diarrhea. Denies any abdominal pain. Denies any hematuria or dysuria. Denies any focal weakness or sensory loss. Denies any visual complaints, difficulty swallowing. Denies any joint or muscle aches. Denies any rashes or lesions. Denies any depression or anxiety. We were asked to see and evaluate the patient given his history of endocarditis and presentation of atrial fibrillation. The patient will be admitted for atrial fibrillation and rule out endocarditis. PAST MEDICAL HISTORY: Significant for: 1. Endocarditis. 2. Mitral valve replacement. 3. Hyperlipidemia. 4. Depression. 5. Hypertension. 6. AFib/A-flutter. 7. Hypertrophic cardiomyopathy, status post myomectomy. PAST SURGICAL HISTORY: 1. Porcine mitral valve replacement. 2. Myomectomy. 3. Radiofrequency ablation x2. 4. Cholecystectomy. CURRENT MEDICATIONS: 1. Xarelto 20 mg p.o. daily. 2. Lipitor 80. 3. Aspirin 81 mg p.o. daily. 4. Wellbutrin 200 mg p.o. b.i.d. 5. Co Q10. 6. Toprol-XL 25 mg p.o. b.i.d. 7. TriCor 54 mg p.o. daily. 8. [place]-3. 9. Multivitamin. ALLERGIES TO MEDICATION: He is allergic to PENICILLIN. FAMILY HISTORY: No cardiac history noted. Patient's father with history of diabetes, mother with history of breast cancer. SOCIAL HISTORY: Denies any tobacco. He does report occasional alcohol use. Denies any drug use. He is currently . Surrogate decision maker is his , Mary Jo, in the event he is unable to make his own decisions. REVIEW OF SYSTEMS: There was no documented fever. No significant weight change. There has been no double vision. No ear discharge, no rhinorrhea. There was no sore throat. Denies any chest pain. Denies any shortness of breath, orthopnea, or nocturnal dyspnea. There was no abdominal pain. No nausea or vomiting. No dysuria or urinary frequency. There has been no loss of consciousness. No pruritus or skin ulcerations. Review of 14 systems was completed and all others have been negative. PHYSICAL EXAMINATION GENERAL: At this time, Mr. Rhodes is a 57-year-old male. He is resting on the stretcher. He does not appear to be in any acute distress. VITAL SIGNS: Temperature was 97. 1, heart rate 62, respirations were 12, O2 saturation 94%, blood pressure 103/63. HEENT: Head is atraumatic, normocephalic. EOMs intact. Sclerae anicteric and not pale. Oral mucosa appears to be moist. NECK: Supple. LUNGS: Clear to auscultation bilaterally. There is no wheezes, rales, or rhonchi. CARDIAC: Heart S1, S2. There is regular rate and rhythm. There is no rubs or gallops. ABDOMEN: Soft and nontender. Bowel sounds are present x4. EXTREMITIES: Pulses are +2 throughout. There is no lower extremity edema. He is able to move all 4 extremities with 5/5 strength. NEUROLOGIC: He is awake, alert, and oriented x3. Speech is clear. There is no focal deficits. SKIN: Intact. DIAGNOSTIC STUDIES AND LABORATORY DATA: WBCs were 10.3, RBCs 5.17, hemoglobin 15.8, hematocrit was 45, platelet count was 241. INR was 1.39. Sodium 138, potassium was 4.6, chloride 108, carbon dioxide was 23, anion gap was 7, BUN was 31, creatinine 1.08, glucose was 90, lactic acid 0.7, calcium 9.4, magnesium was 1.8. ASTs were 11, ALTs were 27. C-reactive protein was 5.15. TSH was 3.78. ASSESSMENT AND PLAN: Mr. Rhodes is a 57-year-old male that presented to the emergency room with complaints of weakness and shortness of breath. He was found to be in atrial fibrillation. On evaluation in the emergency room, we were asked to admit him under observation for: 1. Atrial fibrillation. He was placed on a Cardizem drip in the emergency room and converted to sinus rhythm, rate of 60s. He did receive one dose of p.o. Cardizem 30 mg and we will continue his beta-mikel of Toprol 25 mg p.o. b.i.d. 2. Possible endocarditis. I did speak to Dr. Sullivan, who was concerned that the patient may have endocarditis. The patient is afebrile. Blood cultures have been drawn. His CRP is minimally elevated at 5.15. Given his recent history of endocarditis, we will place him on vancomycin 2000 mg x1 dose and per pharmacy dosing after. 3. Hypomagnesium. He received 2 g of magnesium in the emergency room. We will repeat a magnesium level in the morning. 4. Hyperlipidemia. We will continue him on his Lipitor 80 mg p.o. daily, TriCor 54 mg as well. 5. Mitral valve replacement. We will continue him on his Xarelto 20 mg p.o. daily as well as his aspirin 81 mg. 6. Depression. We will continue him on his Wellbutrin b.i.d. 7. I did speak to Dr. Sullivan about the endocarditis. If the patient is medically stable and his blood cultures are negative, the patient may be discharged. 8. FEN. He will be placed on a heart healthy, decaf okay diet. 8. Code status. He is a full code. 9. DVT prophylaxis. We will continue him on his Xarelto. 10. Disposition. He will be placed inpatient on observation. TIME SPENT: Time spent on this admission was approximately 60 minutes; greater than half that time was spent [id number] with the patient, obtaining his history and physical, the other half the time was spent going over the plan of care with the patient and implementing that plan of care. I have discussed this with my attending, Dr. Dhiraj Rodríugez; he is in agreement with my plan. JESSICA LIN, EPIFANIO [id number]/CPS #: [id number] JOY
[2017-11-30] MEDS: Vancomycin(*) 1,000 MG in NS 0.9% 250 ML* 250 ML IVPB SCH ×2 (05:03→11:19)
[2017-11-30 06:13] LABS: ABS Basophils 0.1 10^3/ul (0-0.2); ABS Eosinophils 0.4 10^3/ul (0-0.6); ABS Lymphocytes 1.6 10^3/ul (1.0-4.8); ABS Monocytes 0.7 10^3/ul (0-0.8); ABS Neutrophils 5.2 10^3/ul (1.5-7.7); ABS Nucleated RBC 0 10^3/ul; Eosinophil % 4.5 % (0-6); Hematocrit 42 % (42-52); Hemoglobin 14.7 g/dl (14.0-18.0); Lymphocyte % 20.3 % (25-47); Mean Corpuscular HGB Conc 35 g/dl (31-36); Mean Corpuscular Hemoglobin 31 pg (27-31); Mean Corpuscular Volume 89 fL (80-94); Mean Platelet Volume 6.9 um3 (7.4-10.4); Nucleated Red Blood Cells % 0.3; Platelet Count 183 10^3/ul (150-450); Red Blood Count 4.73 10^6/ul (4.0-5.4); Red Cell Distribution Width 15 % (10.5-15)
[2017-11-30 06:24] LABS: EGFR Non-African American 78.2 (>60)
[2017-11-30] MEDS ORDERED: Fenofibrate(NF) 48 MG TAB PO SCH (09:00)
[2017-11-30] MEDS ORDERED: Atorvastatin* 80 MG TAB PO SCH (09:00)
[2017-11-30] MEDS ORDERED: Aspirin EC TAB* 81 MG TAB.EC PO SCH (09:00)
[2017-11-30] MEDS ORDERED: Multivitamins/Minerals TAB PO SCH (09:00)
[2017-11-30] MEDS: buPROPion SR TAB.SR* 200 MG PO SCH (09:06)
[2017-11-30] MEDS: Metoprolol Succinate XL TAB* 25 MG PO SCH (09:06)
[2017-11-30] MEDS ORDERED: Metoprolol Tartrate IV* 1 MG/ML 5 ML VIAL IV ONE (11:32)
[2017-11-30] MEDS ORDERED: Diltiazem IV* 5 MG/ML 5 ML VIAL (for loading dose/IV Push) (25 MG) IV SLOW PU ONE (11:36)
[2017-11-30] MEDS ORDERED: Diltiazem DRIP* 100 MG/100 ML ADDV.BAG IVPB SCH (12:00)
--- NOTE | 2017-11-30 12:07 | PN ---
Subjective Date of Service: 11/30/17 Interval History: Patient reports he feels that his heart is racing. Denies SOB/CP. He states this does not feel like when he had endocarditis (3xs) and denies any fever/ chills. Denies body aches, nausea. Reports some fatigue but relates this to the afib he thinks he has been going in and out of it for the past 4-5 days. Denies dizziness Objective Active Medications: Acetaminophen (Tylenol Tab*) 650 mg PO Q4H PRN PRN Reason: FEVER/PAIN Al Hydrox/Mg Hydrox/Simethicone (Maalox Plus*) 30 ml PO Q6H PRN PRN Reason: INDIGESTION Aspirin (Aspirin Ec Tab*) 81 mg PO DAILY [facility] Last Admin: 11/30/17 09:06 Dose: 81 mg Atorvastatin Calcium (Lipitor*) 80 mg PO QAM [facility] Last Admin: 11/30/17 09:05 Dose: 80 mg Bupropion HCl (Wellbutrin Sr Tab*) 200 mg PO BID [facility] Last Admin: 11/30/17 09:06 Dose: 200 mg Fenofibrate (Tricor(Nf)) 54 mg PO DAILY [facility] Last Admin: 11/30/17 09:07 Dose: Not Given Vancomycin HCl 1,000 mg/ (Sodium Chloride) 250 mls @ 166.667 mls/hr IVPB Q6H [facility] Last Admin: 11/30/17 11:19 Dose: 166.667 mls/hr Diltiazem HCl (Cardizem Iv Advan*) 100 mg in 100 mls @ 5 mls/hr IVPB Q20H [facility]; 5 MG/HR PRN Reason: Protocol Multivitamins/Minerals (Theragran/Minerals Tab*) 1 tab PO DAILY [facility] Last Admin: 11/30/17 09:06 Dose: 1 tab Pharmacy Consult (Vancomycin Per Pharmacy*) 1 note FOLLOW UP . PRN PRN Reason: PER PROTOCOL Pharmacy Profile Note (Vancomycin Trough Check) 1 note FOLLOW UP ONCE ONE Stop: 11/30/17 16:31 Rivaroxaban (Xarelto(*)) 20 mg PO 1800 [facility] Last Admin: 11/29/17 21:06 Dose: 20 mg Vital Signs - 8 hr 11/30/17 11/30/17 11/30/17 06:53 07:26 11:21 Temperature 97.7 F 97.9 F Pulse Rate 121 121 Respiratory 16 16 16 Rate Blood Pressure 119/89 125/96 (mmHg) O2 Sat by Pulse 97 98 Oximetry Oxygen Devices in Use Now: None Appearance: well developed 57 yo male A+O x3 in NAD Eyes: No Scleral Icterus, PERRLA Respiratory: Symmetrical Chest Expansion and Respiratory Effort, Clear to Auscultation Cardiovascular: No Edema, - - tachycardiac Abdominal: NL Sounds; No Tenderness; No Distention Extremities: No Edema, No Clubbing, Cyanosis Skin: No Rash or Ulcers, No Nodules or Sclerosis Neurological: Alert and Oriented x 3, NL Sensation, NL Gait, NL Muscle Strength and Tone Lines/Tubes/Other Access: Clean, Dry and Intact Peripheral IV Nutrition: Taking PO's Result Diagrams: 11/30/17 05:44 11/30/17 05:44 Additional Lab and Data: Lab Results 11/29/17 11/29/17 11/29/17 Range/Units 11:13 11:13 11:13 WBC 10.3 (3.5-10.8) 10^3/ul RBC 5.17 (4.0-5.4) 10^6/ul Hgb 15.8 (14.0-18.0) g/dl Hct 45 (42-52) % MCV 87 (80-94) fL MCH 31 (27-31) pg MCHC 35 (31-36) g/dl RDW 15 (10.5-15) % Plt Count 241 (150-450) 10^3/ul MPV 7.0 L (7.4-10.4) um3 Neut % (Auto) 62.6 (38-83) % Lymph % (Auto) 22.7 L (25-47) % [place] % (Auto) 10.5 H (0-7) % Eos % (Auto) 3.1 (0-6) % Baso % (Auto) 1.1 (0-2) % Absolute Neuts (auto) 6.5 (1.5-7.7) 10^3/ul Absolute Lymphs (auto) 2.3 (1.0-4.8) 10^3/ul Absolute Monos (auto) 1.1 H (0-0.8) 10^3/ul Absolute Eos (auto) 0.3 (0-0.6) 10^3/ul Absolute Basos (auto) 0.1 (0-0.2) 10^3/ul Absolute Nucleated RBC 0 10^3/ul Nucleated RBC % 0.1 ESR 1 (0-20) mm/Hr INR (Anticoag Therapy) 1.39 H (0.77-1.02) Sodium 138 L (139-145) mmol/L Potassium 4.6 (3.5-5.0) mmol/L Chloride 108 (101-111) mmol/L Carbon Dioxide 23 (22-32) mmol/L Anion Gap 7 (2-11) mmol/L BUN 31 H (6-24) mg/dL Creatinine 1.08 (0.67-1.17) mg/dL Est GFR ( Amer) 91.0 (>60) Est GFR (Non-Af Amer) 70.7 (>60) BUN/Creatinine Ratio 28.7 H (8-20) Glucose 90 (70-100) mg/dL Lactic Acid (0.5-2.0) mmol/L Calcium 9.4 (8.6-10.3) mg/dL Magnesium 1.8 L (1.9-2.7) mg/dL Total Bilirubin 0.80 (0.2-1.0) mg/dL AST 11 L (13-39) U/L ALT 27 (7-52) U/L Alkaline Phosphatase 64 (34-104) U/L Troponin I 0.03 (<0.04) ng/mL C-Reactive Protein 5.15 H (< 5.00) mg/L Total Protein 6.6 (6.4-8.9) g/dL Albumin 4.1 (3.2-5.2) g/dL Globulin 2.5 (2-4) g/dL Albumin/Globulin Ratio 1.6 (1-3) TSH 3.78 (0.34-5.60) mcIU/mL 11/29/17 Range/Units 11:13 WBC (3.5-10.8) 10^3/ul RBC (4.0-5.4) 10^6/ul Hgb (14.0-18.0) g/dl Hct (42-52) % MCV (80-94) fL MCH (27-31) pg MCHC (31-36) g/dl RDW (10.5-15) % Plt Count (150-450) 10^3/ul MPV (7.4-10.4) um3 Neut % (Auto) (38-83) % Lymph % (Auto) (25-47) % [place] % (Auto) (0-7) % Eos % (Auto) (0-6) % Baso % (Auto) (0-2) % Absolute Neuts (auto) (1.5-7.7) 10^3/ul Absolute Lymphs (auto) (1.0-4.8) 10^3/ul Absolute Monos (auto) (0-0.8) 10^3/ul Absolute Eos (auto) (0-0.6) 10^3/ul Absolute Basos (auto) (0-0.2) 10^3/ul Absolute Nucleated RBC 10^3/ul Nucleated RBC % ESR (0-20) mm/Hr INR (Anticoag Therapy) (0.77-1.02) Sodium (139-145) mmol/L Potassium (3.5-5.0) mmol/L Chloride (101-111) mmol/L Carbon Dioxide (22-32) mmol/L Anion Gap (2-11) mmol/L BUN (6-24) mg/dL Creatinine (0.67-1.17) mg/dL Est GFR ( Amer) (>60) Est GFR (Non-Af Amer) (>60) BUN/Creatinine Ratio (8-20) Glucose (70-100) mg/dL Lactic Acid 0.7 (0.5-2.0) mmol/L Calcium (8.6-10.3) mg/dL Magnesium (1.9-2.7) mg/dL Total Bilirubin (0.2-1.0) mg/dL AST (13-39) U/L ALT (7-52) U/L Alkaline Phosphatase (34-104) U/L Troponin I (<0.04) ng/mL C-Reactive Protein (< 5.00) mg/L Total Protein (6.4-8.9) g/dL Albumin (3.2-5.2) g/dL Globulin (2-4) g/dL Albumin/Globulin Ratio (1-3) TSH (0.34-5.60) mcIU/mL Assess/Plan/Problems-Billing Assessment: 57 yo male with a PMH of endocarditis x3 (most recent 07/2017), hx of mitral valve replacement with porcine valve, HLD, depression, HTN, Afib/ Aflutter s/p ablation x2, hypertrophic cardiomyopathy, s/p myomectomy who presented to the ER on 11/29 with 5 days of SOB and fatigue found to be in rapid afib. - Patient Problems (1) Afib Comment: h/o pafib and is s/p ablation x2 was given cardizem IVP in ED and one dose of cardizem PO then started bnack on home dose BB - responded well; converting to SR on his own - now back in rapid afib with HR 120's. Plan to give Cradizzem 20 mg IVP and start gtt. Spoke to Dr. Ascencio who will see the patient Continue Xarelto (2) H/O mitral valve replacement Comment: Valve functioning appropriately per RAPHAEL 08/2017 (only mild MR) (3) Hyperlipidemia Comment: Continue atorvastatin, fenofibrate. (4) Hypertension Comment: SBP 110-120. (5) DVT prophylaxis Comment: xarelto (6) Full code status Comment: Status and Disposition: OBV. Home when medically stable
[2017-11-30] MEDS ORDERED: Vancomycin Trough Check NOTE FOLLOW UP ONE (16:30)
[2017-11-30] MEDS ORDERED: Dronedarone TAB* 400 MG PO ONE (16:37)
--- NOTE | 2017-11-30 17:18 | ECHO ---
Patient: SONIA RODRÍGUEZ [facility] Rec#: [id number] : 1960 Date: 11/30/2017 Age: 57y Height: 187.96 cm / 74.0 in Weight: 108.41 kg / 238.9 lbs Sex: M BSA: 2.34 Room#: 438 Admit Date#: 11/29/2017 Type: Inpatient Referring: Sabiha Oquendo Reading: Hayder Gambino MD Automation Qa Tester: Mable Burns RDCS CC: Kodi Carlton MD Transthoracic Echocardiogram Indication: Abnormal EKG, history of endocarditis. BP: 125/96 HR: 88 Rhythm: A-Fib Findings History: Endocarditis, 07/11/2010 #33 Biocor bioporsthetic mitral valve replacement (porcine), s/p myectomy for hypertrophic cardiomyopathy, ablation x2, PAF, HLD. Technical Comments: The study quality is fair. Completed at 1515. Left Ventricle: The left ventricular chamber size is normal. Moderate concentric left ventricular hypertrophy is observed. Septal wall hypertrophy is observed.Measuring 2.2 cm. Evidence of prior myomectomy with dyskinetic septal motion. There is evidence of a hypertrophic cardiomyopathy. Global left ventricular wall motion and contractility are within normal limits. There is normal left ventricular systolic function. The estimated ejection fraction is 55-60%. There is a left ventricular septal wall motion abnormality observed, possibly due to the presence of a left bundle branch block. There is no consistent Doppler evidence of clinically significant diastolic dysfunction. Left Atrium: The left atrium is moderate to severely dilated. Right Ventricle: Moderator Band present. The right ventricle is moderately dilated. The right ventricular global systolic function is normal. Right Atrium: The right atrial cavity size is severely dilated. Aortic Valve: The aortic valve is trileaflet. The aortic valve leaflets are mildly thickened. There is trace to mild aortic regurgitation. There is no evidence of aortic stenosis. Mitral Valve: There is mild mitral regurgitation. There is no evidence of mitral stenosis. A porcine bioprosthetic mitral valve is present. Tricuspid Valve: The tricuspid valve leaflets are normal. There is mild tricuspid regurgitation. The right ventricular systolic pressure is estimated at 49 mmHg. There is evidence of moderate pulmonary hypertension. There is no tricuspid stenosis. Pulmonic Valve: The pulmonic valve appears normal. There is mild to moderate pulmonic regurgitation. There is no pulmonic stenosis. Pericardium: There is no significant pericardial effusion. Aorta: There is mild dilatation of the ascending aorta. There is no dilatation of the aortic arch. There is mild dilatation of the aortic root. Pulmonary Artery: The main pulmonary artery appears normal. Venous: The inferior vena cava is dilated. There is a greater than 50% respiratory change in the inferior vena cava dimension. Conclusions Moderate concentric left ventricular hypertrophy is observed. Septal wall hypertrophy is observed. Evidence of prior myomectomy with dyskinetic septal motion. The estimated ejection fraction is 55-60%. There is trace to mild aortic regurgitation. There is mild central mitral regurgitation with a porcine bioprosthetic valve. There is mild tricuspid regurgitation. There is evidence of moderate pulmonary hypertension. There is mild to moderate pulmonic regurgitation. There is mild dilatation of the ascending aorta. There is mild dilatation of the aortic root. Compared to report of RAPHAEL from 08/24/2017 the aortic regurgitation is now noted, the degree of mitral regurgitation is less (was moderate), the degree of tricuspid regurgitation is minimally increased (was trace to mild), and the pulmonic regurgitation is now seen. Measurements Name Value Normal Range RVIDd (AP) 2D 3.2 cm (0.9 - 2.6) RVDdMajor (2D) 6.5 cm (2.2 - 4.4) RAd ISD 4CH 7.1 cm (3.4 - 4.9) RA (A4C)W 5.5 cm (2.9 - 4.6) IVSd (2D) 2.2 cm (0.6 - 1) LVPWd (2D) 1.8 cm (0.6 - 1) LVIDd (2D) 4.2 cm (3.6 - 5.4) LVIDs (2D) 3.8 cm - LV FS (2D) 8 % (25 - 45) Aortic Annulus 2.3 cm (1.4 - 2.6) Ao root diameter (2D) 4.2 cm (2.1 - 3.5) Ascending Ao 3.8 cm (2.1 - 3.4) Aortic arch 2.6 cm (1.8 - 3.4) LA dimension (AP) 2D 6 cm (2.3 - 3.8) LAd ISD 4CH 7.8 cm (2.9 - 5.3) LA ISD 4CH W 5.6 cm (2.5 - 4.5) Name Value Normal Range LA ESV SP 4CH (A/L) 170 ml - LA ESV SP 2CH (A/L) 142 ml - LA ESV BP (A/L) 156 ml - LA ESV BP (A/L) index 66 ml/m2 - LA ESV SP 4CH (MOD) 151 ml - LA ESV SP 2CH (MOD) 131 ml - Name Value Normal Range LV septal e' Vmax 0.03 m/sec - LV lateral e' Vmax 0.04 m/sec - Name Value Normal Range AV Vmax 1 m/sec - AV VTI 14.63 cm - AV peak gradient 3.86 mmHg - AV mean gradient 2 mmHg - LVOT Vmax 0.93 m/sec - LVOT VTI 14.6 cm - LVOT peak gradient 3.62 mmHg - LVOT mean gradient 2 mmHg - PANFILO Vmax 0.71 m/sec - Name Value Normal Range MV Vmax 2 m/sec - MV VTI 47.24 cm - MV peak gradient 16.77 mmHg - MV mean gradient 7.82 mmHg - MV PHT 86.18 msec - MR Vmax 3.48 m/sec - MR VTI 85.4 cm - MVA (PHT) 2.5 cm2 - Name Value Normal Range TR Vmax 3.2 m/sec - TR peak gradient 41 mmHg - RAP 8 mmHg - RVSP 49 mmHg - IVC diameter 2.4 cm - Name Value Normal Range PV Vmax 0.94 m/sec - PV peak gradient 3.7 mmHg - MN end-diastolic Vmax 1.9 m/sec -
[2017-11-30] MEDS: Rivaroxaban TAB(*) 20 MG TAB PO SCH (17:35)
[2017-11-30 18:28] VITALS: BP 124/97
--- NOTE | 2017-12-01 02:25 | CONS ---
CC: Dr. Carlton; Dr. Sullivan * CARDIOLOGY CONSULTATION: DATE OF CONSULT: 11/30/17 INDICATION FOR CONSULTATION: Atrial tachycardia. HISTORY OF PRESENT ILLNESS: The patient is a 57-year-old gentleman with a history of aortic valve replacement, history of endocarditis, history of atrial tachycardia and atrial fibrillation, hypertrophic cardiomyopathy, who came to the emergency room because of atrial fibrillation/flutter. He went to see his primary care physician regarding his fatigue and was thought to be in atrial fibrillation and he was transported to the emergency room. In the emergency room, he was found to be in a slow atrial tachycardia with a heart rate of 120 beats per minute. He does have a known left bundle branch block. The patient was started on Cardizem and admitted to the hospital. This morning, the patient did have an episode where he was in normal sinus rhythm when he was off the Cardizem and the Cardizem was restarted because of tachycardia. He converted to normal sinus rhythm again. In speaking with him this afternoon on 11/30/17, he is actually feeling well, he is feeling less fatigued, his heart rate is under good control. PAST MEDICAL HISTORY: Significant for mitral valve replacement; hypertrophic cardiomyopathy, status post myomectomy, done at [facility]; depression; hyperlipidemia; atrial arrhythmia. PAST SURGICAL HISTORY: Porcine mitral valve replacement, myomectomy, radiofrequency ablation x2, cholecystectomy. OUTPATIENT MEDICATIONS: 1. Xarelto 20 mg a day. 2. Lipitor 80 mg a day. 3. Aspirin 81 mg a day. 4. Wellbutrin 200 mg b.i.d. 5. Toprol-XL 25 mg b.i.d. 6. TriCor 45 mg a day. 8. [place]-3 acids. 9. Multivitamin a day. ALLERGIES: PENICILLIN. FAMILY HISTORY: No family history of coronary artery disease. SOCIAL HISTORY: He is . He has 2 children. He denies tobacco. Rare alcohol use. PHYSICAL EXAMINATION: Height is 6 feet 2 inches, weight 239 pounds. Heart rate is 104, blood pressure 124/97. He is afebrile. Sclerae anicteric. Oropharynx is pink without erythema. Carotids are 2+ without bruits. JVD is normal. Thyroid is normal. Cardiac Exam: S1, S2 with a 1/6 systolic ejection murmur. No diastolic murmur. PMI is normal. Lungs are clear to auscultation bilaterally. There is no dullness to percussion. Abdomen is soft, nontender, nondistended with normoactive bowel sounds. Extremities show no edema. DIAGNOSTIC STUDIES/LAB DATA: CBC within normal limits. Chemistries within normal limits. BUN and creatinine are normal. AST and ALT are normal. TSH is 3.7. Again, EKGs show both atrial tachycardia at 120 beats a minute as well as normal sinus rhythm with underlying left bundle branch block. IMPRESSION: This is a 57-year-old gentleman with a complex cardiac history, who comes in with his recurrent atrial arrhythmia. The patient had been on Multaq in the past. The patient is followed by an installer apprentice at [facility]. I did discuss the case with Dr. Sullivan, his primary cage shift manager. The decision was to restart his Multaq at 400 mg b.i.d., also is to increase his Toprol to 50 mg b.i.d. His other medications will remain the same. He will stay on the Xarelto. Dr. Sullivan will see the patient later this week to make further decisions. This was discussed with Conchis Oquendo, nurse practitioner for the hospitalist service. [id number]/[facility] #: [id number] JOY
--- NOTE | 2017-12-15 11:33 | DS ---
AMENDED REPORT NOW INCLUDES COSIGNER DESIGNATION - ESIGNED BEFORE ADJUSTMENT CC: Dr. Carlton * DISCHARGE SUMMARY: DATE OF ADMISSION: 11/29/17 DATE OF DISCHARGE: 11/30/17 PROVIDER: Francy Carney NP ATTENDING PHYSICIAN: Dr. Green * (report dictated by Francy Carney NP). PRIMARY CARE PROVIDER: Dr. Carlton. CEMENT BLOCK MAKER: Dr. Sullivan. DISCHARGE DIAGNOSIS: Atrial tachycardia. SECONDARY DIAGNOSES: 1. Porcine mitral valve replacement. 2. Hypertrophic cardiomyopathy, status post myomectomy. 3. Depression. 4. Hyperlipidemia. 5. History of endocarditis x3, most recently being in 2016. DISCHARGE MEDICATIONS: 1. Xarelto 20 mg daily. 2. Lipitor 80 mg p.o. daily. 3. Aspirin 81 mg p.o. daily. 4. Wellbutrin 200 mg p.o. b.i.d. 5. TriCor 45 mg p.o. daily. 6. [place] 1 cap p.o. daily. 7. Multivitamin 1 p.o. daily. 8. Metoprolol succinate XL 50 mg p.o. b.i.d., increased dosage. 9. Multaq 400 mg p.o. b.i.d., new medication. HISTORY OF PRESENT ILLNESS AND HOSPITAL COURSE: Please see history and physical by Jessica Lin NP for full admission details; but, in summary, this is a 57-year- old male with a past medical history of endocarditis x3, with most recent being in July 2017; history of mitral valve replacement with porcine valve; hyperlipidemia; hypertension; AFib/Aflutter; hypertrophic cardiomyopathy, status post myomectomy, who presented to the ER with complaints of fatigue and shortness of breath, found to have AFib with RVR. His heart rate was noted to be 120 beats per minute in the emergency department and he has a known left bundle branch block. He was initially started on Cardizem and was admitted to the hospitalist service. The patient did have an episode of normal sinus rhythm when he was off the Cardizem and the Cardizem drip was discontinued and then restarted because of atrial tachycardia. He then converted back to normal sinus rhythm. It appears he was going in and out of an atrial tachycardia. He was seen in consultation by Dr. Ascencio, tree and shrub technician, who recommended increasing the patient's Toprol to 50 mg p.o. b.i.d. and restart Multaq 400 mg p.o. b.i.d. Please note that the patient was on this medication previously, which was discontinued by his primary tree and shrub technician, Dr. Sullivan. Dr. Ascencio and I spoke at length about the patient and he discussed the case with Dr. Sullivan, who agreed with the plan. He is not concerned about endocarditis, the patient has no obvious signs of infection and denies any fever /chills. The patient will have a followup with Dr. Sullivan later this week as an outpatient. We will continue his Xarelto at this time. On discharge, the patient continues to have a heart rate of 110. Per Dr. Ascencio , okay to discharge at this time with close followup with Dr. Sullivan as an outpatient. The patient reports that he feels better and denies shortness of breath, dizziness, chest pain. He agrees with the plan of care for discharge home and followup with his tree and shrub technician in the next 1 to 2 days. The patient's magnesium was 1.8 on admission and given replacement. On recheck , it is normalized. He should have this rechecked as an outpatient in 1 to 2 weeks. His troponin was negative at 0.03. Other labs were unremarkable. There are no signs for an infectious process, low suspicion for recurrent endocarditis. He did undergo a transthoracic echocardiogram, which compared to report of his RAPHAEL from 08/24/17: The aortic regurgitation is now noted, the degree of mitral regurgitation is less "was moderate," the degree of tricuspid regurgitation is minimally increased "was [id number]," and the pulmonic regurgitation is now seen. Dr. Ascencio did review his echocardiogram prior to discharge. DISCHARGE PLAN: 1. Follow up with primary care provider, Dr. Carlton, within 5 to 7 days. 2. Follow up with Dr. Sullivan in the next 1 to [address] Ascencio, the tree and shrub technician will call the patient with an appointment time and date. 3. I have discussed with the patient if he has any concerning or worsening symptoms he is to return to the emergency department. 4. Stable for discharge to home. TIME SPENT: Approximately 60 minutes were spent on this discharge. FRANCY CARNEY, HAND III CUTTER [id number]/[facility] #: [id number] JOY
== END 2017-11-30 18:58 | disposition home or self-care (01) ==
LOC: ED 10:27 → MEDTELE 15:54
PROVIDERS: ADMIT Internal Medicine; ATTEND Internal Medicine
DX: I47.1 Supraventricular tachycardia (principal); I48.92 Unspecified atrial flutter; R53.83 Other fatigue; R06.02 Shortness of breath; E83.42 Hypomagnesemia; E78.5 Hyperlipidemia, unspecified; Z79.82 Long term (current) use of aspirin; Z95.2 Presence of prosthetic heart valve; F32.9 Major depressive disorder, single episode, unspecified; R53.81 Other malaise
CPT/HCPCS: 36415; 80048; 80053; 83605; 83735; 84443; 84484; 85025; 85610; 85652; 86140; 87040; 93005; 93306; 96374; 99284; A9270-GY; G0378; J3370; J3475